=== PATIENT | female | born 1970 | race Caucasian/White ===

== ENCOUNTER 2016-05-08 21:16 | Emergency (ER) | payer OTHER ==
[2016-05-08] MEDS ORDERED: IBUPROFEN 600 MG TABLET (FP) PO ONE ×2 (21:38→21:39)
[2016-05-08 21:43] VITALS: BP 126/80; PULSE 117; TEMP 101.6; BMI 38.0
--- NOTE | 2016-05-08 22:40 | PDOC ---
[id number] No Limitations - History of Present Illness Initial Comments: 05/08/16 22:52 The patient is a 45 year old female with significant past medical history of hypertension who presents to the ED with 3 days of subjective fever, chills, and headache. Patient reports nausea, but no vomiting. She also reports 1 day of diarrhea a couple of days ago that resolved on its own. The patient denies cough, SOB, chest pain, abdominal pain and diarrhea. PCP: Dr. Georgi Rosenberg <Annie Sawyer - Last Filed: 05/08/16 22:52> - General History Source: Patient <PedroJuan mendez - Last Filed: 05/09/16 19:45> - General Chief Complaint: Cold Symptoms Stated Complaint: HEADACHE Time Seen by Provider: 05/08/16 22:31 Past History <Annie Sawyer - Last Filed: 05/08/16 22:52> - Past Medical History Anemia: No Asthma: No Cancer: No Cardiac Disorders: No CVA: No COPD: No CHF: No Dementia: No Diabetes: No GI Disorders: Yes (DIVERTICULITIS) Disorders: Yes (KIDNEY STONES) HTN: Yes (NOW CONTROLLED) Hypercholesterolemia: No Liver Disease: No Seizures: No Thyroid Disease: No - Surgical History Abdominal Surgery: No Appendectomy: No Cardiac Surgery: No Cholecystectomy: No Lung Surgery: No Neurologic Surgery: No Orthopedic Surgery: No - Immunization History Immunization Up to Date: Yes - Psycho/Social/Smoking Cessation Hx Anxiety: No Suicidal Ideation: No Smoking Status: No Smoking History: Never smoked Have you smoked in the past 12 months: No Number of Cigarettes Smoked Daily: 0 Hx Alcohol Use: No Drug/Substance Use Hx: No Substance Use Type: None Hx Substance Use Treatment: No <Juan Hart - Last Filed: 05/09/16 19:45> - Past Medical History Allergies/Adverse Reactions: Allergies Allergy/AdvReac Type Severity Reaction Status Date / Time Tetanus Vaccines and Toxoid Allergy Severe Rash Verified 05/08/16 21:35 Home Medications: Ambulatory Orders Losartan Potassium [Cozaar] 25 mg PO BID 07/20/12 Acetaminophen [Tylenol] 325 mg PO ONCE 05/08/16 Acetaminophen [Tylenol] 650 mg PO QID #60 tablet 05/09/16 Ibuprofen 800 mg PO TID #30 tablet 05/09/16 Ondansetron [Zofran Odt -] 4 mg SL TID #30 od.tablet 05/09/16 Review of Systems - Review of Systems Able to Perform ROS?: Yes Comments:: 05/08/16 22:52 CONSTITUTIONAL: +fever, chills Absent: no fatigue EYES: Absent: visual changes ENT: Absent: ear pain, no sore throat CARDIOVASCULAR: Absent: chest pain, no palpitations RESPIRATORY: Absent: cough, no SOB GI: +nausea, diarrhea Absent: abdominal pain, no vomiting, no constipation, GENITOURINARY: Absent: dysuria, no frequency, no hematuria MUSKULOSKELETAL: Absent: back pain, no arthralgia, no myalgia SKIN: Absent: rash NEURO: +headache <nAnie Sawyer - Last Filed: 05/08/16 22:52> *Physical Exam - Vital Signs Last Vital Signs Temp Pulse Resp BP Pulse Ox 101.6 F H 117 H 18 126/80 95 05/08/16 21:41 05/08/16 21:41 05/08/16 21:41 05/08/16 21:41 05/08/16 21:41 - Physical Exam Comments: 05/08/16 22:52 GENERAL: Well-appearing, well-nourished. No apparent distress. HEENT: Normocephalic, atraumatic. PERRL, EOM intact. CARDIOVASCULAR: Normal S1, S2. Regular rate and rhythm. PULMONARY: Clear to auscultation bilaterally. ABDOMEN: Soft, non-distended, non-tender. EXTREMITIES: Normal ROM in all four extremities. No gross deformities. SKIN: Warm, dry. No rash NEUROLOGICAL: No focal neurological deficits. <Annie Sawyer - Last Filed: 05/08/16 22:52> - Vital Signs Last Vital Signs Temp Pulse Resp BP Pulse Ox 101.6 F H 117 H 18 126/80 95 05/08/16 21:41 05/08/16 21:41 05/08/16 21:41 05/08/16 21:41 05/08/16 21:41 <Juan Hart - Last Filed: 05/09/16 19:45> ED Treatment Course - Medications Given in the ED: ED Medications Discontinued Medications Generic Name Dose Route Start Last Admin Trade Name Freq PRN Reason Stop Dose Admin Ibuprofen 600 mg 05/08/16 21:39 05/08/16 21:40 Motrin - PO 05/08/16 21:40 600 mg NOW ONE Administration <Annie Sawyer - Last Filed: 05/08/16 22:52> - Medications Given in the ED: ED Medications Discontinued Medications Generic Name Dose Route Start Last Admin Trade Name Magdi PRN Reason Stop Dose Admin Ibuprofen 600 mg 05/08/16 21:39 05/08/16 21:40 Motrin - PO 05/08/16 21:40 600 mg NOW ONE Administration <Juan Hart - Last Filed: 05/09/16 19:45> Medical Decision Making - Medical Decision Making 05/09/16 19:44 Dr. Hart: The scribe's documentation has been prepared under my direction and personally reviewed by me in its entirery. I confirm that the note above accurately reflects all work, treatment, procedures, and medical decision making performed by me. <Juan Hart - Last Filed: 05/09/16 19:45> *DC/Admit/Observation/Transfer - Attestations Scribe Attestion: 05/08/16 22:53 Documentation prepared by Annie Sawyer, acting as medical underwriter for Juan Hart MD <Annie Sawyer - Last Filed: 05/08/16 22:52> - Discharge Dispostion Admit: No <Juan Hart - Last Filed: 05/09/16 19:45> Diagnosis at time of Disposition: Viral illness Headache Qualifiers: Headache type: unspecified Headache chronicity pattern: unspecified pattern Intractability: not intractable Qualified Code(s): R51 - Headache Fever Qualifiers: Fever type: unspecified Qualified Code(s): R50.9 - Fever, unspecified - Discharge Dispostion Disposition: HOME Condition at time of disposition: Stable - Prescriptions Prescriptions: Ibuprofen 800 mg PO TID #30 tablet Acetaminophen [Tylenol] 650 mg PO QID #60 tablet Ondansetron [Zofran Odt -] 4 mg SL TID #30 od.tablet - Referrals Referrals: Georgi Rosenberg MD [Primary Care Provider] - - Patient Instructions Printed Discharge Instructions: DI for Fever (Symptom) -- Adult, DI for Headache
[2016-05-09] MEDS ORDERED: ONDANSETRON *ODT* 4 MG TABLET SL ONE (00:20)
[2016-05-09] MEDS ORDERED: ONDANSETRON *ODT* 4 MG TABLET ONE (00:25)
[2016-05-09] MEDS ORDERED: ONDANSETRON 8 MG TABLET (FP) PO ONE (00:26)
== END 2016-05-09 00:38 | disposition home or self-care (01) ==
LOC: JERFT 21:16 → JER 21:16
DX: B34.9 Viral infection, unspecified (principal); R50.9 Fever, unspecified; R51 Headache; I10 Essential (primary) hypertension; Z87.442 Personal history of urinary calculi
CPT/HCPCS: 70450-TC; 99281-25

== ENCOUNTER 2016-12-20 18:13 | Emergency (ER) | payer OTHER ==
[2016-12-20 18:27] VITALS: BMI 40.1
--- NOTE | 2016-12-20 19:31 | PDOC ---
History of Present Illness - General History Source: Patient, Old Records Exam Limitations: No Limitations - History of Present Illness Initial Comments: 12/20/16 19:31 CHIEF COMPLAINT: Headache HISTORY OF PRESENT ILLNESS: This is a 46 year old female with a history of vertigo and HTN who presents ambulatory to the ER complaining of sudden onset of occipital headache 3 hours prior to arrival. She does get headaches sometimes , but has never had one like this before. She reports associated nausea, neck pain, and right arm numbness/tingling. She denies visual changes, difficulty ambulating, dizziness, focal weakness, changes in speech, or any other symptoms. V/s on arrival are notable for P 102. PCP [address] Dr. Garcia No family history of CVA. Non-smoker. REVIEW OF SYSTEMS: GENERAL/CONSTITUTIONAL: No fever or chills. No weakness. No weight change. HEAD, EYES, EARS, NOSE AND THROAT: No change in vision. No ear pain or discharge. No sore throat. CARDIOVASCULAR: No chest pain or palpitations. RESPIRATORY: No cough, wheezing, or shortness of breath. GASTROINTESTINAL: Nausea. No vomiting, diarrhea or constipation. GENITOURINARY: No dysuria, frequency, or change in urination. MUSCULOSKELETAL: No joint or muscle swelling or pain. No neck or back pain. SKIN: No rash or easy bruising. NEUROLOGIC: See HPI. PSYCHIATRIC: No depression or anxiety. ENDOCRINE: No increased thirst. No abnormal weight change. HEMATOLOGIC/LYMPHATIC: No anemia, easy bleeding, or history of blood clots. ALLERGIC/IMMUNOLOGIC: No hives or skin allergy. No latex allergy. PHYSICAL EXAM: GENERAL: The patient is awake, alert, and fully oriented, in no acute distress. HEAD: Normal with no signs of trauma. ENT: Pupils equal, round and reactive to light, extraocular movements intact, sclera anicteric, conjunctiva clear. Neck stiff/unable to touch chin to chest. LUNGS: Clear to auscultation bilaterally. Normal excursion. No respiratory distress or use of accessory muscles. CV: RRR, S1/S2, no MRG. Cap refill < 2 sec. ABDOMEN: Soft, non-distended, non-tender. EXTREMITIES: Normal range of motion, no edema. NEUROLOGICAL: Normal speech, normal gait. CN II-XII grossly intact. See NIHSS. PSYCH: Normal mood, normal affect. SKIN: Warm, dry, normal turgor, no rashes or lesions noted. <Sandy Chandra - Last Filed: 12/20/16 19:55> <Lily Mtz - Last Filed: 12/20/16 21:38> - General Chief Complaint: Headache Stated Complaint: HEADACHE Time Seen by Provider: 12/20/16 19:12 NIH Stroke Scale - Last Known Well Date/Time & Onset Date Last Known Well: 12/20/16 Time Last Known Well: 16:45 - Initial Evaluation Level of consciousness: Alert Ask patient the month and their age: Answers both correctly Ask patient to open & close eyes; make fist and let go: Obeys both correctly Best gaze (horizontal eye movement): Normal Visual field testing: No visual field loss Facial paresis (Show teeth/raise eyebrows/close eyes tight): Normal symmetrical movement Motor Function: Left Arm: Normal Motor Function: Right Arm: Normal (extends arm 90 (or 45) degrees for 10 seconds without drift Motor Function: Left Leg: Normal (extends leg 30 degrees for 5 seconds without drift) Motor Function: Right Leg: Normal (extends leg 30 degrees for 5 seconds without drift) Limb Ataxia: No ataxia Sensory(Use pinprick test arms,legs,trunk,face/side to side): Mild to moderate decrease in sensation (Right arm) Best language (Describe picture, name items, read sentences): No Aphasia Dysarthria (read several words): Normal articulation Extinction and Inattention: No abnormality - Total Score NIH Stroke Scale Score: 1 <Sandy Chandra - Last Filed: 12/20/16 19:55> Past History - Past Medical History Anemia: No Asthma: No Cancer: No Cardiac Disorders: No CVA: No COPD: No CHF: No Dementia: No Diabetes: No GI Disorders: Yes (DIVERTICULITIS) Disorders: Yes (KIDNEY STONES) HTN: Yes (NOW CONTROLLED) Hypercholesterolemia: No Liver Disease: No Seizures: No Thyroid Disease: No - Surgical History Abdominal Surgery: No Appendectomy: No Cardiac Surgery: No Cholecystectomy: No Lung Surgery: No Neurologic Surgery: No Orthopedic Surgery: No - Immunization History Immunization Up to Date: Yes - Psycho/Social/Smoking Cessation Hx Anxiety: No Suicidal Ideation: No Smoking Status: No Smoking History: Never smoked Have you smoked in the past 12 months: No Number of Cigarettes Smoked Daily: 0 Hx Alcohol Use: No Drug/Substance Use Hx: No Substance Use Type: None Hx Substance Use Treatment: No <Sandy Chandra - Last Filed: 12/20/16 19:55> <Lily Mtz - Last Filed: 12/20/16 21:38> - Past Medical History Allergies/Adverse Reactions: Allergies Allergy/AdvReac Type Severity Reaction Status Date / Time Tetanus Vaccines and Toxoid Allergy Severe Rash Verified 12/20/16 18:24 Home Medications: Ambulatory Orders Losartan Potassium [Cozaar] 25 mg PO BID 07/20/12 *Physical Exam - Vital Signs Last Vital Signs Temp Pulse Resp BP Pulse Ox 99.4 F 102 H 19 130/58 96 12/20/16 18:24 12/20/16 18:24 12/20/16 18:24 12/20/16 18:24 12/20/16 18:24 <Sandy Chandra - Last Filed: 12/20/16 19:55> - Vital Signs Last Vital Signs Temp Pulse Resp BP Pulse Ox 99.4 F 102 H 19 130/58 96 12/20/16 18:24 12/20/16 18:24 12/20/16 18:24 12/20/16 18:24 12/20/16 18:24 <Lily Mtz - Last Filed: 12/20/16 21:38> ED Treatment Course - LABORATORY CBC & Chemistry Diagram: 12/20/16 19:50 12/20/16 19:50 - ADDITIONAL ORDERS Additional order review: Laboratory Results 12/20/16 12/20/16 12/20/16 19:50 19:50 19:50 PT with INR Cancelled INR Cancelled Sodium Cancelled Potassium Cancelled Chloride Cancelled Carbon Dioxide Cancelled Anion Gap Cancelled BUN Cancelled Creatinine Cancelled Creat Clearance w eGFR Cancelled Random Glucose Cancelled Calcium Cancelled Total Bilirubin Cancelled AST Cancelled ALT Cancelled Alkaline Phosphatase Cancelled Creatine Kinase Cancelled Troponin I Cancelled Total Protein Cancelled Albumin Cancelled Triglycerides Cancelled Cholesterol Cancelled Total LDL Cholesterol Cancelled HDL Cholesterol Cancelled Anti-A Titer Cancelled Blood Type Cancelled Antibody Screen Cancelled Spec Expiration Date Cancelled 12/20/16 19:50 RBC 4.27 MCV 86.5 MCHC 32.6 RDW 15.9 H MPV 8.3 Neutrophils % 67.8 Lymphocytes % 23.2 Monocytes % 6.9 Eosinophils % 1.2 Basophils % 0.9 - Medications Given in the ED: ED Medications Discontinued Medications Generic Name Dose Route Start Last Admin Trade Name Magdi PRN Reason Stop Dose Admin Metoclopramide HCl 10 mg 12/20/16 19:38 12/20/16 20:30 Reglan Injection - IVPB 12/20/16 19:39 10 mg ONCE ONE Administration <Lily Mtz - Last Filed: 12/20/16 21:38> Medical Decision Making - Medical Decision Making 12/20/16 19:43 A/P: 46 year old female with sudden onset, atypical headache accompanied by right arm numbness. -CVA/TIA order set initiated, patient transported directly to [facility] from [facility] -Will transfer to Main ED for further evaluation and treatment; endorsed to Dr. Mtz and nurse fiscal manager <Sandy Chandra - Last Filed: 12/20/16 19:55> *DC/Admit/Observation/Transfer <Sandy Chandra - Last Filed: 12/20/16 19:55> - Discharge Dispostion Admit: No - Attestations Physician Attestion: 12/20/16 21:35 Discussion with patient in Jamaican at bedside in main ED. She has had similar headaches in the past, she has noticed she has been having them since the onset of menopause with her hysterectomy. She has been following up with her device engineer about the menopausal symptoms, but she states at times she has hot/cold flashes. She says that her headaches begin with pain to the right side of her neck, which then spreads up the R side of her head up to the frontal area. They are associated with changes in sensation to the right side of her face. No weakness or numbness to the limbs. She has had 3 of these headaches, they are episodic. The pain can be severe. She does not take anything for them. On exam, she has normal neuro exam. I suspect these symptoms are due to complex migraine. Recommended outpatient neuro f/u. <Lily Mtz - Last Filed: 12/20/16 21:38> Diagnosis at time of Disposition: Headache Qualifiers: Headache type: unspecified Headache chronicity pattern: episodic headache Intractability: not intractable Qualified Code(s): R51 - Headache - Discharge Dispostion Disposition: HOME Condition at time of disposition: Stable - Patient Instructions Printed Discharge Instructions: DI for Migraine, DI for Hormonal and Tension Headaches Additional Instructions: Siga con un neurlogo para los tawanda de marcos. si tiene dolor de marcos, tome ibuprofeno para el dolor. Si tiene dolor de marcos melody, rigidez en el kyra, vmitos, prdida de sensacin o movimiento, regrese inmediatamente a la balta de emergencia. Print Language: JORDANIAN
[2016-12-20] MEDS ORDERED: METOCLOPRAMIDE HCL INJECTION 10 MG/2 ML VIAL IVPB ONE (19:38)
[2016-12-20] MEDS ORDERED: SODIUM CHLORIDE 1,000 ML IV SCH (19:45)
[2016-12-20 20:01] LABS: BASOPHIL 0.9 % (0-2.0); EOSINOPHIL 1.2 % (0-4.5); MCH 28.2 pg (25.7-33.7); MCHC 32.6 g/dl (32.0-36.0); MEAN CELL VOLUME 86.5 fl (80-96); MEAN PLT VOLUME 8.3 fl (7.5-11.1); NEUTROPHILS 67.8 % (42.8-82.8); PLATELET COUNT 428 K/MM3 (134-434); RDW 15.9 % (11.6-15.6)
[2016-12-20] MEDS ORDERED: METOCLOPRAMIDE HCL INJECTION 10 MG/2 ML VIAL ONE (20:31)
[2016-12-20 21:55] LABS: URINE APPEARANCE CLOUDY; URINE BILIRUBIN NEGATIVE (NEGATIVE); URINE BLOOD 3+ (NEGATIVE); URINE COLOR YELLOW; URINE GLUCOSE (UA) NEGATIVE (NEGATIVE); URINE KETONE NEGATIVE (NEGATIVE); URINE NITRITE POSITIVE (NEGATIVE); URINE PROTEIN NEGATIVE (NEGATIVE); URINE UROBILINOGEN NEGATIVE mg/dL (0.2-1.0)
[2016-12-20 21:56] LABS: URINE LEUK ESTERASE 3+ (NEGATIVE)
[2016-12-20 22:10] VITALS: BP 128/60; PULSE 90; TEMP 98.2
[2016-12-20 22:49] LABS: URINE MUCUS RARE; URINE RBC 89 /hpf (0-3); URINE WBC 384 /hpf (3-5)
== END 2016-12-20 22:13 | disposition home or self-care (01) ==
LOC: JER 18:13 → JERFT 18:13 → JER 22:13
PROC: 3E033GC Introduction of Other Therapeutic Substance into Peripheral Vein, Percutaneous Approach (ICD-10-PCS; principal; 2016-12-20)
DX: R51 Headache (principal); I10 Essential (primary) hypertension
CPT/HCPCS: 36415; 70450-TC; 81003; 81015; 85025; 96374; 99283-25

== ENCOUNTER 2017-11-10 09:10 | Day surgery (SDC) | payer OTHER ==
[2017-11-05 14:57] VITALS: BMI 31.7
[2017-11-10] MEDS ORDERED: LACTATED RINGERS SOLUTION 1,000 ML IV SCH (09:45)
[2017-11-10] MEDS ORDERED: PROPOFOL 20 ML ONE (10:55)
[2017-11-10] MEDS ORDERED: MIDAZOLAM HCL 2 MG/2 ML SINGLE DOSE VIAL ONE (10:55)
[2017-11-10] MEDS ORDERED: LIDOCAINE HCL/PF 2% SDV 5ML VIAL ONE (10:57)
[2017-11-10] MEDS ORDERED: DEXAMETHASONE SOD PHOSPHATE 4 MG/1 ML VIAL ONE ×2 (10:57→12:13)
[2017-11-10] MEDS ORDERED: GENTAMICIN SO4 80 MG/2 ML VIAL ONE (11:51)
[2017-11-10] MEDS ORDERED: KETOROLAC TROMETHAMINE 30 MG/1 ML VIAL ONE (12:13)
--- NOTE | 2017-11-10 12:22 | OP ---
Operative Note - Note: Operative Date: 11/10/17 Pre-Operative Diagnosis: right renal stone Operation: cystoscopy/right retrograde pyelogram/right ureteroscopic laser lithotripsy/right ureteral stent placement Findings: multiple 1-3 cm right renal stones with upj obstruction Post-Operative Diagnosis: Same as Pre-op (right upj obstruction with multiple large renal stones) Surgeon: Easton Russell Anesthesia: General Drains & Tubes with Location: right 09/26 ureteral stent
[2017-11-10 13:36] VITALS: TEMP 97.6
[2017-11-10 15:00] VITALS: BP 114/67; PULSE 77
--- NOTE | 2017-11-10 23:05 | OP ---
DATE OF OPERATION: 11/10/2017 PREOPERATIVE DIAGNOSIS: Right renal stone. POSTOPERATIVE DIAGNOSIS: Multiple large, 1-3 cm, renal stones with right ureteropelvic junction obstruction with mild to moderate hydronephrosis. PROCEDURE: Cystoscopy, right retrograde pyelogram, right ureteroscopic laser lithotripsy, right ureteral dilation, and right ureteral stent placement. ATTENDING SURGEON: Ronald Hanson MD ANESTHESIA: General. OPERATION: The patient was brought to the operating room and placed in the supine position on the operating room table. Preoperative antibiotics as well as anesthesia were instituted. The patient received 500 mg of Levaquin with a dose of gentamicin as well. The dose of gentamicin was given after the stone burden was appreciated on retrograde pyelogram. The patient was placed in the dorsal lithotomy position, prepped and draped in the usual sterile manner. Cystoscopy was performed with no evidence of neoplasm or stones within the bladder were noted. One to 2+ bladder spatulation was noted. At this point, a retrograde pyelogram was performed. Prior to the retrograde pyelogram, fluoroscopy was performed and multiple large calcific densities were noted over the renal fossa. Retrograde pyelogram showed that these were indeed within the collecting system of the kidney. Multiple stones measuring 1-3 cm were noted in the lower pole and renal pelvis as well as upper pole. At this point, the wire was passed proximally and a flexible ureteroscope was placed. It must be noted that the right UPJ obstruction measuring 2 cm was noted. A ureteral navigator was utilized for dilation of the proximal as well as distal ureters. A flexible ureteroscopy was then performed over a wire utilizing the Seldinger technique. A second wire had been left in place in order to have a safety wire present. With the flexible ureteroscope in position in the kidney, a Holmium laser fiber was passed. Under direct visualization lithotripsy utilizing the Holmium laser was performed. Debulking of one of the large stones was performed. There was no evidence of extravasation of contrast. The patient's vital signs stayed stable throughout the procedure. Because of the number of stones, it was decided that lithotripsy utilizing extracorporeal shock wave lithotripsy would be employed at the next setting. The patient has been given the option of a percutaneous nephrostomy tube with an approach to the stones by that method; however, the patient has declined that approach. At this point, a 6-Arabic 22-cm stent was placed over the wire utilizing the Seldinger technique. No complications were noted. The patient tolerated the procedure very well. The disposition of the patient is to the recovery room. KARIS HANSON M.D. /[id number]
== END 2017-11-10 15:00 | disposition home or self-care (01) ==
LOC: JASU-SURG 09:10
PROVIDERS: ATTEND Urology
PROC: 0TF68ZZ Fragmentation in Right Ureter, Via Natural or Artificial Opening Endoscopic (ICD-10-PCS; principal; 2017-11-10 11:00)
PROC: 0T768DZ Dilation of Right Ureter with Intraluminal Device, Via Natural or Artificial Opening Endoscopic (ICD-10-PCS; 2017-11-10 11:00)
DX: N20.0 Calculus of kidney (principal); N13.39 Other hydronephrosis
CPT/HCPCS: 76000-TC-FY

== ENCOUNTER 2017-12-01 09:43 | Inpatient (IN) | payer OTHER ==
[2017-12-01] MEDS ORDERED: SODIUM CHLORIDE 1,000 ML IV STA (09:58)
--- NOTE | 2017-12-01 10:05 | PDOC ---
History of Present Illness - General History Source: Patient Exam Limitations: No Limitations - History of Present Illness Initial Comments: 12/01/17 12:15 Ms. Jerome Cao is a 47 yo F with a hx of nephrolithiasis s/p right ureteral stent placement 2 weeks ago and HTN who presents to the emergency department with rectal bleeding. She states the episode occurred at 9am today. She had an involuntary bowel movement with stool and blood mixed. She denies bright red blood and a hx of hemorrhoids. In addition, she states she had no pain during this episode. Per the patient, she had tarry stools last Friday 1x episode, but had normal movements Friday and Friday. Denies the following: hx of familial colon cancer, NSAID use, hx of gastritis/PUD, use of anticoagulants, and never had a colonoscopy. She was scheduled for a lithotripsy today with Dr. Manuel Rogers at 12:30 pm. Denies the following: fever, headaches, recent visual changes, weakness, chest pain, SOB, abdominal pain, hematuria, vaginal bleeding/discharge , dysuria, and leg pain/swelling. Pmhx: HTN, nephrolithiasis Shx: Ureteral stent right side 2 weeks ago. Meds: losartan and potassium Allergies: tetanus vaccine Social: Denies smoking, alcohol, and drug use. 12/01/17 13:33 12/01/17 13:41 <Dell Rodriguez - Last Filed: 12/02/17 07:37> <Pallavi Nava - Last Filed: 12/02/17 16:27> - General Chief Complaint: Rectal Bleed Stated Complaint: BLOOD IN THE STOOL Time Seen by Provider: 12/01/17 10:02 Past History - Past Medical History Anemia: No Asthma: No Cancer: No Cardiac Disorders: No CVA: No COPD: No CHF: No DVT: No Dementia: No Diabetes: No GI Disorders: Yes (DIVERTICULITIS) Disorders: Yes (KIDNEY STONES) HTN: Yes (NOW CONTROLLED) Hypercholesterolemia: No Kidney Stones: Yes Liver Disease: No Seizures: No Thyroid Disease: No - Surgical History Abdominal Surgery: No Appendectomy: No Cardiac Surgery: No Cholecystectomy: No Lung Surgery: No Neurologic Surgery: No Orthopedic Surgery: No - Immunization History Immunization Up to Date: Yes - Suicide/Smoking/Psychosocial Hx Smoking Status: No Smoking History: Never smoked Have you smoked in the past 12 months: No Number of Cigarettes Smoked Daily: 0 Information on smoking cessation initiated: No Hx Alcohol Use: Yes (occas) Drug/Substance Use Hx: No Substance Use Type: Alcohol Hx Substance Use Treatment: No <Dell Rodriguez - Last Filed: 12/02/17 07:37> <Pallavi Nava - Last Filed: 12/02/17 16:27> - Past Medical History Allergies/Adverse Reactions: Allergies Allergy/AdvReac Type Severity Reaction Status Date / Time Tetanus Vaccines and Toxoid Allergy Severe Rash Verified 12/01/17 09:45 Home Medications: Ambulatory Orders Losartan Potassium [Cozaar] 25 mg PO BID 07/20/12 Potassium Citrate [Potassium Citrate ER] 10 meq PO BID 12/02/17 Review of Systems - Review of Systems Able to Perform ROS?: Yes Constitutional: No: Diaphoresis, Fever HEENTM: No: Recent change in vision, Ear Pain, Nose Pain, Throat Pain, Mouth Pain Respiratory: No: Cough, Shortness of Breath, Hemoptysis Cardiac (ROS): No: Chest Pain, Lightheadedness, Palpitations, Syncope ABD/GI: Yes: Rectal Bleeding. No: Constipated, Diarrhea, Nausea, Poor Fluid Intake, Vomiting, Tarry Stools : No: Dysuria, Hematuria Musculoskeletal: No: Back Pain Integumentary: No: Rash Neurological: No: Headache, Numbness, Weakness Psychiatric: No: Stressors Endocrine: No: Unexplained Weight Loss Hematologic/Lymphatic: No: Anemia <Dell Rodriguez - Last Filed: 12/02/17 07:37> *Physical Exam - Vital Signs Last Vital Signs Temp Pulse Resp BP Pulse Ox 98.8 F 111 H 18 143/88 100 12/01/17 09:47 12/01/17 09:47 12/01/17 09:47 12/01/17 09:47 12/01/17 09:47 - Physical Exam General Appearance: Yes: Nourished, Appropriately Dressed HEENT: positive: EOMI, LYNN, Normal ENT Inspection Neck: negative: Lymphadenopathy (R), Lymphadenopathy (L) Respiratory/Chest: positive: Lungs Clear, Normal Breath Sounds Cardiovascular: positive: Regular Rhythm, S1, S2, Tachycardia. negative: Systolic Murmur Vascular Pulses: Dorsalis-Pedis (R): 3+, Doralis-Pedis (L): 3+ Gastrointestinal/Abdominal: positive: Normal Bowel Sounds, Tender (LLQ tenderness to palpation), Soft Rectal Exam: positive: heme positive stool. negative: decreased tone, hemorrhoids Lymphatic: negative: Adenopathy Musculoskeletal: positive: Normal Inspection, CVA Tenderness Extremity: positive: Normal Capillary Refill, Normal Inspection, Normal Range of Motion Integumentary: positive: Dry, Warm, Pale Neurologic: positive: clinical admissions manager II-XII NML intact, Fully Oriented, Alert, Motor Strength 5/5 <Dell Rodriguez - Last Filed: 12/02/17 07:37> - Vital Signs Last Vital Signs Temp Pulse Resp BP Pulse Ox 98.1 F 90 13 128/80 100 12/02/17 10:30 12/02/17 11:30 12/02/17 11:30 12/02/17 11:30 12/02/17 09:00 <Pallavi Nava - Last Filed: 12/02/17 16:27> ED Treatment Course - LABORATORY CBC & Chemistry Diagram: 12/01/17 16:34 12/02/17 05:30 <Dell Rodriguez - Last Filed: 12/02/17 07:37> - LABORATORY CBC & Chemistry Diagram: 12/02/17 05:30 12/02/17 05:30 - ADDITIONAL ORDERS Additional order review: 12/01/17 10:35 RBC 4.26 MCV 88.7 MCHC 33.1 RDW 13.6 D MPV 7.8 Neutrophils % 60.5 Lymphocytes % 27.5 Monocytes % 8.6 Eosinophils % 3.0 D Basophils % 0.4 - Medications Given in the ED: ED Medications Discontinued Medications Generic Name Dose Route Start Last Admin Trade Name Alfrdeoq PRN Reason Stop Dose Admin Sodium Chloride 1,000 mls @ 1,000 mls/hr 12/01/17 09:58 12/01/17 11:45 Normal Saline - IV 12/01/17 10:57 1,000 mls/hr ASDIR STA Administration Sodium Chloride 1,000 mls @ 100 mls/hr 12/01/17 14:15 12/01/17 14:43 Normal Saline - IV 100 mls/hr ASDIR GINA Administration Pantoprazole Sodium 40 mg 12/01/17 14:05 12/01/17 21:59 Protonix Iv IVPUSH 40 mg BID GINA Administration <Pallavi Nava - Last Filed: 12/02/17 16:27> Medical Decision Making - Medical Decision Making 12/01/17 13:49 Ms. Cano is a 47 yo F with hx of nephrolithiasis and HTN who presents with rectal bleeding with passing of blood clots in ED with positive fecal occult test. ddx: diverticulosis, diverticulitis, colonic cancer, fissure, fistula, hemorrhoids Initial vitals": Initial Vital Signs Temp Pulse Resp BP Pulse Ox 98.8 F 111 H 18 143/88 100 12/01/17 09:47 12/01/17 09:47 12/01/17 09:47 12/01/17 09:47 12/01/17 09:47 Work up: Laboratory Tests 12/01/17 12/01/17 12/01/17 10:35 10:35 10:35 WBC 6.4 RBC 4.26 Hgb 12.5 Hct 37.8 MCV 88.7 MCH 29.4 MCHC 33.1 RDW 13.6 D Plt Count 311 D MPV 7.8 Absolute Neuts (auto) 3.8 Neutrophils % 60.5 Lymphocytes % 27.5 Monocytes % 8.6 Eosinophils % 3.0 D Basophils % 0.4 Nucleated RBC % 0 Retic Count 0.97 PT with INR 11.80 INR 1.04 Sodium 143 Potassium 4.1 Chloride 108 H Carbon Dioxide 25 Anion Gap 10 BUN 12 Creatinine 0.5 L Creat Clearance w eGFR > 60 Random Glucose 107 H Calcium 9.0 Total Bilirubin 0.4 AST 14 L ALT 24 Alkaline Phosphatase 106 Total Protein 7.0 Albumin 3.6 Stool Occult Blood Blood Type Antibody Screen 12/01/17 12/01/17 12/01/17 10:44 10:44 11:37 WBC RBC Hgb Hct MCV MCH MCHC RDW Plt Count MPV Absolute Neuts (auto) Neutrophils % Lymphocytes % Monocytes % Eosinophils % Basophils % Nucleated RBC % Retic Count PT with INR INR Sodium Potassium Chloride Carbon Dioxide Anion Gap BUN Creatinine Creat Clearance w eGFR Random Glucose Calcium Total Bilirubin AST ALT Alkaline Phosphatase Total Protein Albumin Stool Occult Blood Negative Positive Blood Type O POSITIVE Antibody Screen Negative 12/01/17 13:12 WBC 10.5 H RBC 3.54 L Hgb 10.6 L Hct 31.7 L D MCV 89.6 MCH 29.9 MCHC 33.3 RDW 13.5 Plt Count 330 MPV 8.0 Absolute Neuts (auto) 7.8 Neutrophils % 75.1 D Lymphocytes % 17.7 D Monocytes % 6.2 Eosinophils % 0.8 Basophils % 0.2 Nucleated RBC % 0 Retic Count PT with INR INR Sodium Potassium Chloride Carbon Dioxide Anion Gap BUN Creatinine Creat Clearance w eGFR Random Glucose Calcium Total Bilirubin AST ALT Alkaline Phosphatase Total Protein Albumin Stool Occult Blood Blood Type Antibody Screen CBC was initially within normal limits in the department with tachycardia. Given 1 L of NS with improvement of tachycardia to 97. She passed dark blood multiple times with initial presenting as 10 cc. a repeat CBC was ordered and showed a 1.[address] Burger was consulted who recommended ICU admission. ICU was contacted and accepted admission for rectal bleeding. Disposition: Admit to ICU. <Dell Rodriguez - Last Filed: 12/02/17 07:37> *DC/Admit/Observation/Transfer - Discharge Dispostion Decision to Admit order: Yes <Dell Rodriguez - Last Filed: 12/02/17 07:37> - Discharge Dispostion Decision to Admit order: Yes <Pallavi Nava - Last Filed: 12/02/17 16:27> Diagnosis at time of Disposition: Rectal bleeding - Discharge Dispostion Condition at time of disposition: Fair
--- NOTE | 2017-12-01 10:26 | PDOC ---
Attending Attestation - HPI HPI: 12/01/17 11:59 The patient is a 47 year old male, with a significant past medical history of vertigo and HTN, kidney stones s/p lithotripsy/ureteral stent for right UPJ stone, who presents to the emergency department with, rectal bleeding with associated LLQ tenderness and dizziness yesterday. As per patient, she had two episodes of rectal bleeding, one being involuntary. She reports one episode of tar-like stool 4 days ago. The patient has a 12:30pm with Dr. Russell for a lithotripsy. He denies any recent fevers, chills, headache. He denies any recent nausea, vomit, diarrhea or constipation. He denies any recent chest pain or shortness of breath. He denies any recent dysuria, frequency, urgency or hematuria. Allergies: NKA Past surgical history:Tetanus vaccine and toxoid. - Physicial Exam PE: 12/01/17 11:59 NAD, well appearing, MMM, nl conjunctiva, anicteric; neck supple. lungs clear, RRR, abdomen soft nontender, obese. +gross blood per rectum, nontender. BLACK x4, no focal neuro deficits. No peripheral edema. normal color for ethnicity, WWP. <Elizabeth Leija - Last Filed: 12/01/17 11:59> - Resident Resident Name: Dell Rodriguez - ED Attending Attestation I have performed the following: I have examined & evaluated the patient, The case was reviewed & discussed with the resident, I agree w/resident's findings & plan - Medical Decision Making 12/01/17 11:35 Cano Cao 47 YOF history of vertigo and HTN, kidney stones s/p lithotripsy/ ureteral stent for right UPJ stone presenting with painless rectal bleeding; this past Friday with tarry dark stools. No prior similar episodes. DDx. Diverticular bleed, colitis, hemorrhoid, PUD, anemia, electrolyte/ metabolic derangements. considered but unlikely renal colic or hematuria and no flank tenderness or CVAT. Vital signs reviewed, notable for mild tachycardia, mild hypertension. Medical Plan: TxS, CBC, CMP, ECG, trops/card panel, stool occult test Prior notes reviewed, including admissions, discharges and consultations. laboratory results and imaging reviewed, basic labs and lytes wnl, coags/H/H normal. +grossly positive stools and clot passage, dark red bloody appearance, benign abdominal exam but did elicit LLQ tenderness on resident exam. CT imaging a/p to eval for source of pain. No pain otherwise. VS remain stable, given fluids and TxS already. Called out to Dr. Burger for GI eval and scope, admit for GIB. - while in the ED she had another several episodes of blood per rectum, symptomatic with dizziness and pallor. repeat VS normal, HR in 90s, brought back from CT a/p which was not completed. repeat CBC check indicated. will call for ICU bed for closer monitoring, hemodynamics, serial H/H and abdominal exams and at risk for decompensation and further bleeding. Dr. Palmer consulted and admitting physician. Dispo: Admitting to ICU for acute GIB, suspecting lower GIB, GI consultation for more urgent scope called in the ED given active bleeding.. Discussed results and management plan with pt and family member at bedside, agree with impression and plan 12/01/17 14:40 <Pallavi Nava - Last Filed: 12/01/17 14:40> Heart Score/ECG Review - ECG Impressions Comment:: 12/01/17 14:39 EKG normal sinus rhythm, no interval abnormalities, narrow QRS, ST and T wave segments and morphology normal. Nonspecific T wave abnormalities flattening in III, AVF <Pallavi Nava - Last Filed: 12/01/17 14:40> Attestations - Attestations 12/01/17 12:00 Documentation prepared by Elizabeth Leija, acting as medical record consultant for Pallavi Nava MD. <Elizabeth Leija - Last Filed: 12/01/17 11:59> - Attestations Physician Attestation: 12/01/17 14:39 I, Pallavi Nava MD, attest that this document has been prepared under my direction and personally reviewed by me in its entirety. I further attest, that it accurately reflects all work, treatment, procedures and medical decision -making performed by me. <Pallavi Nava - Last Filed: 12/01/17 14:40>
[2017-12-01 10:43] LABS: BASO % 0.4 % (0-2.0); HEMATOCRIT 37.8 % (32.4-45.2); HEMOGLOBIN 12.5 GM/dL (10.7-15.3); LYMPH % 27.5 % (8-40); MCH 29.4 pg (25.7-33.7); MCHC 33.1 g/dl (32.0-36.0); MEAN CELL VOLUME 88.7 fl (80-96); MEAN PLT VOLUME 7.8 fl (7.5-11.1); MONO % 8.6 % (3.8-10.2); NEUT % 60.5 % (42.8-82.8); PLATELET COUNT 311 K/MM3 (134-434); RBC 4.26 M/mm3 (3.60-5.2); RDW 13.6 % (11.6-15.6); RETICULOCYTES 0.97 % (0.5-1.5); WHITE BLOOD COUNT 6.4 K/mm3 (4.0-10.0)
[2017-12-01 11:04] LABS: INR 1.04 (0.83-1.09); PROTHROMBIN TIME (PATIENT) 11.8 SEC (9.7-13.0)
[2017-12-01 11:10] LABS: ALBUMIN 3.6 g/dl (3.4-5.0); ANION GAP 10 MMOL/L (8-16); BLOOD UREA NITROGEN 12 mg/dL (7-18); CHLORIDE 108 mmol/L (98-107); CO2 25 mmol/L (21-32); CREATININE 0.5 mg/dL (0.55-1.02); GLUCOSE,RANDOM 107 mg/dL (74-106); POTASSIUM 4.1 mmol/L (3.5-5.1); SGOT/AST 14 U/L (15-37); SGPT/ALT 24 U/L (12-78); SODIUM 143 mmol/L (136-145)
[2017-12-01 11:12] LABS: ALK PHOS 106 U/L (45-117); BILIRUBIN,TOTAL 0.4 mg/dL (0.2-1.0)
[2017-12-01 13:23] LABS: BASO % 0.2 % (0-2.0); EOS % 0.8 % (0-4.5); HEMATOCRIT 31.7 % (32.4-45.2); HEMOGLOBIN 10.6 GM/dL (10.7-15.3); LYMPH % 17.7 % (8-40); MCH 29.9 pg (25.7-33.7); MCHC 33.3 g/dl (32.0-36.0); MEAN CELL VOLUME 89.6 fl (80-96); MONO % 6.2 % (3.8-10.2); NEUT % 75.1 % (42.8-82.8); PLATELET COUNT 330 K/MM3 (134-434); RBC 3.54 M/mm3 (3.60-5.2); RDW 13.5 % (11.6-15.6); WHITE BLOOD COUNT 10.5 K/mm3 (4.0-10.0)
[2017-12-01] MEDS ORDERED: SODIUM CHLORIDE 1,000 ML IV SCH (14:15)
[2017-12-01] MEDS ORDERED: PANTOPRAZOLE SODIUM 40 MG VIAL ONE (14:40)
--- NOTE | 2017-12-01 14:41 | CONSULT ---
Consultation: REQUESTING PROVIDER: Dr. Henao (admitting), [facility] [place] ([place]) CONSULT REQUEST: We have been asked to medically evaluate this patient for GI/ rectal bleed. HISTORY OF PRESENT ILLNESS: Pt, with PMH of endometrial CA s/p hysterectomy, HTN (controlled with 25 mg Losartan BID), and nephrolithiasis s/p R ureteral stent placement, presents with rectal bleeding since Friday (11/28/2017). Starting Friday, the pt noticed dark red/brown spotting after passing a BM, which was associated with diffuse abdominal crampy pain. Her BMs were normal on Friday and Friday. This AM, the pt states the crampy abdominal pain returned, and she had bowel incontinence with a bloody loose stool. She also had multiple episodes of bloody loose stool in the ER, with passage of a dark red clot and tachycardia to 3. She began to feel light-headed after this event. She denies any fevers/chills, nausea/ vomiting, chest pain, SOB, dysuria, hematuria, or leg swelling. She denies any new/raw foods or any sick contacts. She has not had a colonoscopy. Hemoccult stool test in ER was positive for blood. The pt had a R ureteral stent placed 11/10/2017. Last week Friday and Friday, she took 2 aleve BID for pain after the stent. She also used an antibiotic ( unknown type) x7 days after the stent was placed. LMP was before the hysterectomy was completed. Allergies: Tetanus vaccine Social: denies alcohol, cigarettes, or drug use. Family history: no cancer or GI bleeding REVIEW OF SYSTEMS: CONSTITUTIONAL: Absent: fever, chills, diaphoresis, generalized weakness, malaise, loss of appetite, weight change. Light headed after loose BMs today. HEENT: Absent: rhinorrhea, nasal congestion, throat pain, throat swelling, difficulty swallowing, mouth swelling, ear pain, eye pain, visual changes CARDIOVASCULAR: Absent: chest pain, syncope, palpitations, irregular heart rate, peripheral edema. Endorses lightheadedness RESPIRATORY: Absent: cough, shortness of breath, dyspnea with exertion, orthopnea, wheezing, stridor, hemoptysis GASTROINTESTINAL: Absent: abdominal distension, nausea, vomiting, constipation. Generalized, crampy abdominal pain associated with loose bloody stools. Tarry stool on Friday. GENITOURINARY: Absent: dysuria, frequency, urgency, hesitancy, hematuria, flank pain, genital pain MUSCULOSKELETAL: Absent: myalgia, arthralgia, joint swelling, back pain, neck pain SKIN: Absent: rash, itching, pallor HEMATOLOGIC/IMMUNOLOGIC: Absent: easy bleeding, easy bruising, lymphadenopathy, frequent infections. Current bleeding from rectum with BMs. No history of bleeds. Endometrial cancer s/p complete hysterectomy. ENDOCRINE: Absent: unexplained weight gain, unexplained weight loss, heat intolerance, cold intolerance NEUROLOGIC: Absent: headache, focal weakness or paresthesias, dizziness, unsteady gait, seizure, mental status changes, bladder incontinence. Bowel incontinence. PSYCHIATRIC: Absent: anxiety, depression, suicidal or homicidal ideation, hallucinations. PHYSICAL EXAMINATION Vital Signs - 24 hr 12/01/17 12/01/17 12/01/17 09:47 10:05 12:20 Temperature 98.8 F 98.0 F Pulse Rate 111 H Pulse Rate [ 120 H Apical] Respiratory 18 20 Rate Blood Pressure 143/88 Blood Pressure 137/110 [Right Arm] O2 Sat by Pulse 100 100 100 Oximetry (%) 12/01/17 12/01/17 13:16 13:36 Temperature 98.0 F 98.0 F Pulse Rate Pulse Rate [ 100 H 98 H Apical] Respiratory 18 18 Rate Blood Pressure Blood Pressure 110/70 124/90 [Right Arm] O2 Sat by Pulse 100 98 Oximetry (%) GENERAL: Awake, alert, and fully oriented. BP 124/90, tachycardic 98-104, 98% on RA. Pt able to lie comfortably. HEAD: Normal with no signs of trauma. EYES: Pupils equal, round and reactive to light, extraocular movements intact, sclera anicteric, conjunctiva clear. No lid lag. EARS, NOSE, THROAT: Nares patent, oropharynx clear without exudates. Moist mucous membranes. NECK: Normal range of motion, supple without lymphadenopathy, JVD, or masses. LUNGS: Breath sounds equal, clear to auscultation bilaterally. No wheezes, and no crackles. No accessory muscle use. HEART: Regular rhythm, tachycardic 98-104. normal S1 and S2 without murmur, rub or gallop. ABDOMEN: Soft, nontender, not distended, hypoactive bowel sounds. no guarding, no rebound, no masses. No hepatomegaly or splenomegaly. RECTAL: Bright red blood present around the rectum. Deferred rectal as already performed by ED physician with gross blood on glove. MUSCULOSKELETAL: Normal range of motion at all joints. No bony deformities or tenderness. No CVA tenderness. UPPER EXTREMITIES: 2+ pulses, warm, well-perfused. No cyanosis. No clubbing. Cap refill <2 seconds. No peripheral edema. LOWER EXTREMITIES: 2+ pulses, warm, well-perfused. No calf tenderness. No peripheral/pitting edema. NEUROLOGICAL: Cranial nerves II-XII intact. Normal speech. PSYCHIATRIC: Cooperative. Good eye contact. Appropriate mood and affect. SKIN: Warm, dry, normal turgor/no skin tenting, no rashes or lesions noted. Laboratory Results - last 24 hr 12/01/17 12/01/17 12/01/17 10:35 10:35 10:35 WBC 6.4 RBC 4.26 Hgb 12.5 Hct 37.8 MCV 88.7 MCH 29.4 MCHC 33.1 RDW 13.6 D Plt Count 311 D MPV 7.8 Absolute Neuts (auto) 3.8 Neutrophils % 60.5 Lymphocytes % 27.5 Monocytes % 8.6 Eosinophils % 3.0 D Basophils % 0.4 Nucleated RBC % 0 Retic Count 0.97 PT with INR 11.80 INR 1.04 Sodium 143 Potassium 4.1 Chloride 108 H Carbon Dioxide 25 Anion Gap 10 BUN 12 Creatinine 0.5 L Creat Clearance w eGFR > 60 Random Glucose 107 H Calcium 9.0 Total Bilirubin 0.4 AST 14 L ALT 24 Alkaline Phosphatase 106 Total Protein 7.0 Albumin 3.6 Stool Occult Blood Blood Type Antibody Screen Crossmatch 12/01/17 12/01/17 12/01/17 10:44 10:44 11:37 WBC RBC Hgb Hct MCV MCH MCHC RDW Plt Count MPV Absolute Neuts (auto) Neutrophils % Lymphocytes % Monocytes % Eosinophils % Basophils % Nucleated RBC % Retic Count PT with INR INR Sodium Potassium Chloride Carbon Dioxide Anion Gap BUN Creatinine Creat Clearance w eGFR Random Glucose Calcium Total Bilirubin AST ALT Alkaline Phosphatase Total Protein Albumin Stool Occult Blood Negative Positive Blood Type O POSITIVE Antibody Screen Negative Crossmatch See Detail 12/01/17 13:12 WBC 10.5 H RBC 3.54 L Hgb 10.6 L Hct 31.7 L D MCV 89.6 MCH 29.9 MCHC 33.3 RDW 13.5 Plt Count 330 MPV 8.0 Absolute Neuts (auto) 7.8 Neutrophils % 75.1 D Lymphocytes % 17.7 D Monocytes % 6.2 Eosinophils % 0.8 Basophils % 0.2 Nucleated RBC % 0 Retic Count PT with INR INR Sodium Potassium Chloride Carbon Dioxide Anion Gap BUN Creatinine Creat Clearance w eGFR Random Glucose Calcium Total Bilirubin AST ALT Alkaline Phosphatase Total Protein Albumin Stool Occult Blood Blood Type Antibody Screen Crossmatch Active Medications Generic Name Dose Route Start Last Admin Trade Name Magdi PRN Reason Stop Dose Admin Chlorhexidine Gluconate 1 applic 12/01/17 22:00 Hibiclens For Decolonization - TP HS GINA Sodium Chloride 1,000 mls @ 100 mls/hr 12/01/17 14:15 Normal Saline - IV ASDIR GINA Mupirocin 1 applic 12/01/17 22:00 Bactroban Ointment (For Decolonization) - NS 12/06/17 21:59 BID GINA Pantoprazole Sodium 40 mg 12/01/17 14:05 Protonix Iv IVPUSH BID GINA ASSESSMENT/PLAN: 47 yo F, with PMH of endometrial cancer s/p total hysterectomy , HTN, and nephrolithiasis s/p R ureteral stent, presents with rectal bleeding. Considering cancer metastasis, colitis/diverticulitis, C diff. 1. Cardiac HTN - continue Losartan 25 mg PO BID 2. GI Rectal bleeding - Started 40 mg IV Protonix BID scheduled. NG tube placed in ER. Intermittent suctioning (informed ER nurse). Dr. Franz will perform endoscopy and colonoscopy to r/o source of bleed. 2 units PRBCs ordered from blood bank, awaiting 3rd H/H (spoke to Dr. Rodriguez in ER who will draw and send). H/H dropped 12.5 to 10.5 while pt in ER. Will monitor stools and order C diff cultures if necessary. 3. Pt was supposed to have R ureteral stent removed today. Consulted Dr. Russell to follow pt. 4. Heme/Onc Will monitor H/H and transfuse as stated above. S/p complete hysterectomy, will monitor. Dispo: We will continue to follow the patient. Thank you for this consultative opportunity. Problem List - Problems (1) Rectal bleeding Code(s): K62.5 - HEMORRHAGE OF ANUS AND RECTUM (2) Endometrial adenocarcinoma Code(s): C54.1 - MALIGNANT NEOPLASM OF ENDOMETRIUM (3) HTN (hypertension) Code(s): I10 - ESSENTIAL (PRIMARY) HYPERTENSION Visit type - Emergency Visit Emergency Visit: Yes ED Registration Date: 12/01/17 Care time: The patient presented to the Emergency Department on the above date and was hospitalized for further evaluation of their emergent condition. - New Patient This patient is new to me today: Yes Date on this admission: 12/01/17 - Critical Care Critical Care patient: No
[2017-12-01] MEDS: PANTOPRAZOLE SODIUM 40 MG VIAL IVPUSH SCH ×2 (14:43→21:59)
--- NOTE | 2017-12-01 15:02 | CON.GI ---
Consult Consult Specialty:: GI Referred by:: Hospitalist service Reason for Consultation:: Rectal bleeding - History of Present Illness Chief Complaint: Rectal bleeding. 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 for evaluation of rectal bleeding. She states that this past friday she noticed a scant amount of red rectal bleeding mixed with brown stool. There was no bleeding friday/friday. This morning she began experiencing rectal bleeding again with passage of clots as well. She had rectal bleeding in the ER. Triage vitals revealed T: 98.8 P: 111 BP: 143/88. Initial Hgb @ 10:35 revealed normal WBC and Hgb 12.5. She was bolused 1 L of NS. She was going for CT scan for evaluation of abdominal pain. I began evaluating her while she was waiting in the wheelchair for the CT scan. She stated that while waiting she had had 3 more bloody movements. her pulse was 130. While I was looking for a BP cuff she went to the bathroom, had another bloody BM and felt as though she was going to pass out. Rapid response was called and she was brought back to the ED. She was continued on fluids with pulse improving to the low 100's and improved clinically. She denied abdominal pain but did experience cramping when having the bloody bowel movements. She took two aleve pills on friday for "kidney pain" and possibly the day prior to that. She denies nausea, vomiting, vomiting of blood or similar episodes in the past. She has never had an upper endoscopy or colonoscopy. There is no family history of colorectal cancer or other GI malignancy. She was supposed to have a urological procedure today. - History Source History Provided By: Patient, Family Member (sister in law present at bedside) - Past Medical History Cardio/Vascular: Yes: HTN Renal/: Yes: Renal Calculi ...LMP: 03/01/16 - Past Surgical History Past Surgical History: Yes: None Additional Surgical History: Ureteral stent placement 11/12/17 - Alcohol/Substance Use Hx Alcohol Use: Yes (occasional) History of Substance Use: reports: None - Smoking History Smoking history: Never smoked Have you smoked in the past 12 months: No Aproximately how many cigarettes per day: 0 - Social History Usual Living Arrangement: With Spouse ADL: Independent 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 (year): History of Recent Travel: No Home Medications - Allergies Allergies/Adverse Reactions: Allergies Allergy/AdvReac Type Severity Reaction Status Date / Time Tetanus Vaccines and Toxoid Allergy Severe Rash Verified 12/01/17 09:45 - Home Medications Home Medications: Ambulatory Orders Losartan Potassium [Cozaar] 25 mg PO BID 07/20/12 Family Disease History - Family Disease History Family Disease History: Other: Father (: 49: etoh cirrhosis), Mother (Alive : healthy), Brother (3 healthy) Other Family History: No children. No family history of colorectal cancer or other GI malignancy Review of Systems - Review of Systems Constitutional: denies: Chills Cardiovascular: denies: Chest Pain Respiratory: denies: Cough, SOB Physical Exam-GI Vital Signs: Vital Signs Temperature 99.0 F oral 12/01/17 13:36 Pulse Rate 98 H 12/01/17 13:36 Respiratory Rate 18 12/01/17 13:36 Blood Pressure 124/90 12/01/17 13:36 O2 Sat by Pulse Oximetry (%) 98 % 12/01/17 13:36 Constitutional: Yes: Calm Eyes: No: Sclera Icterus Cardiovascular: Yes: Tachycardia. No: Murmur Respiratory: Yes: CTA Bilaterally Gastrointestinal Inspection: No: Distention ...Auscultate: Yes: Normoactive Bowel Sounds ...Palpate: No: Hepatomegaly, Splenomegaly, Tenderness ...Percussion: No: Tympanitic ...Rectal Exam: Yes: Other (shovel engineer present: no external lesions, no masses, brown liquid stool and blood on glove) Edema: No (No LE edema) Neurological: Yes: Alert, Oriented Labs: CBC, BMP 12/01/17 13:12 12/01/17 10:35 INR, PTT INR 1.04 (0.83-1.09) 12/01/17 10:35 Hepatic Panel Total Bilirubin 0.4 mg/dL (0.2-1.0) 12/01/17 10:35 AST 14 U/L (15-37) L 12/01/17 10:35 ALT 24 U/L (12-78) 12/01/17 10:35 Alkaline Phosphatase 106 U/L (45-117) 08/27/18 10:35 Albumin 3.6 g/dl (3.4-5.0) 12/01/17 10:35 Problem List - Problems (1) Rectal bleeding Assessment/Plan: Painless hematochezia with orthostasis and resting tachycardia. vitals improved with fluid bolus Advise: NPO ICU admission Placement of NGT for golytely prep IV Hydration / continued resuscitation Protonix 40mg IVPB BID for now Monitor for continued active bleeding. If so, transfuse 1 U PRBC Surgical evaluation Discussed EGD/Colonoscopy to assess for upper/lower source of bleeding. Discussed potential risks of procedures like but not limited to bleeding, perforation requiring surgery to repair, infection, sedation medication effects all of which could be potentially life threatening. he sister in law was present during the conversation and . Jerome Cao has agreed to the procedures. Timing of procedures to be determined by clincial course Code(s): K62.5 - HEMORRHAGE OF ANUS AND RECTUM
--- NOTE | 2017-12-01 16:10 | CONSULT ---
- Consultation REQUESTING PROVIDER: MD Brandy CONSULT REQUEST: We have been asked to surgically evaluate this patient for rectal bleeding. PCP:Tory Henao HISTORY OF PRESENT ILLNESS: CTSP for evaluation and management of rectal bleeding which started earlier today; she was due to have ESWL today for ongoing renal stones; it ws cancelled ; she had # episoes of BRBPR associated w/ crampy non specific abdominal pain; she never had this before and denies straining and or constipation and any other GI//CLIENT RELATIONSHIP EXECUTIVE c/o's; she came to the ER for evaluation; she had some orthostatic changes in the ER which responded to fluid boluses; she has no otrher c/o; she has never had a colonoscopy. PMHx: hypertension; nephrolithiasis PSHx: TAHBSO for FIGO1 endometrial carcinoma Home Medications Medication Instructions Recorded Losartan Potassium [Cozaar] 25 mg PO BID 07/20/12 Allergies Allergy/AdvReac Type Severity Reaction Status Date / Time Tetanus Vaccines and Toxoid Allergy Severe Rash Verified 12/01/17 09:45 REVIEW OF SYSTEMS: CONSTITUTIONAL: Absent: fever, chills, diaphoresis, generalized weakness, malaise, loss of appetite, weight change CARDIOVASCULAR: Absent: chest pain, syncope, palpitations, irregular heart rate, lightheadedness , peripheral edema RESPIRATORY: Absent: cough, shortness of breath, dyspnea with exertion, wheezing, stridor, hemoptysis GASTROINTESTINAL: Absent: abdominal pain, abdominal distension, nausea, vomiting, diarrhea, constipation, melena, hematochezia GENITOURINARY: Present: hematuria, flank pain, Absent: myalgia, arthralgia, joint swelling, back pain, neck pain SKIN: Absent: rash, itching, pallor HEMATOLOGIC/IMMUNOLOGIC: Absent: easy bleeding, easy bruising, lymphadenopathy NEUROLOGIC: Absent: headache, focal weakness, paresthesias, dizziness, unsteady gait, seizure, mental status changes, bladder or bowel incontinence PSYCHIATRIC: Absent: anxiety, depression, suicidal or homicidal ideation, hallucinations. PHYSICAL EXAM: GENERAL: Awake, alert, and fully oriented, in no acute distress. HEAD: Normal with no signs of trauma. EYES: sclera anicteric, conjunctiva clear. NECK: Normal ROM, supple without lymphadenopathy, JVD, or masses. ABDOMEN: Soft, obese and nontender, not distended, normoactive bowel sounds, no guarding, no rebound, no masses. No organomegaly. No hernias MUSCULOSKELETAL: Normal ROM at all joints. No bony deformities or tenderness. No CVA tenderness. UPPER EXTREMITIES: 2+ pulses, warm, well-perfused. No cyanosis. Cap refill <2 seconds. No peripheral edema. LOWER EXTREMITIES: 2+ pulses, warm, well-perfused. No calf tenderness. No peripheral edema. NEUROLOGICAL: Normal speech, gait not observed. PSYCH: Cooperative. Good eye contact. Appropriate mood and affect. SKIN: Warm, dry, normal turgor, no rashes or lesions noted. Vital Signs Temperature 98.0 F 12/01/17 13:36 Pulse Rate 98 H 12/01/17 13:36 Respiratory Rate 18 12/01/17 13:36 Blood Pressure 124/90 12/01/17 13:36 O2 Sat by Pulse Oximetry (%) 98 12/01/17 13:36 Lab Results WBC 10.5 K/mm3 (4.0-10.0) H 12/01/17 13:12 RBC 3.54 M/mm3 (3.60-5.2) L 12/01/17 13:12 Hgb 10.6 GM/dL (10.7-15.3) L 12/01/17 13:12 Hct 31.7 % (32.4-45.2) L D 12/01/17 13:12 MCV 89.6 fl (80-96) 12/01/17 13:12 MCHC 33.3 g/dl (32.0-36.0) 12/01/17 13:12 RDW 13.5 % (11.6-15.6) 12/01/17 13:12 Plt Count 330 K/MM3 (134-434) 12/01/17 13:12 Sodium 143 mmol/L (136-145) 12/01/17 10:35 Potassium 4.1 mmol/L (3.5-5.1) 12/01/17 10:35 Chloride 108 mmol/L (98-107) H 12/01/17 10:35 Carbon Dioxide 25 mmol/L (21-32) 12/01/17 10:35 Anion Gap 10 MMOL/L (8-16) 12/01/17 10:35 BUN 12 mg/dL (7-18) 12/01/17 10:35 Creatinine 0.5 mg/dL (0.55-1.02) L 12/01/17 10:35 Random Glucose 107 mg/dL (74-106) H 12/01/17 10:35 Calcium 9.0 mg/dL (8.5-10.1) 12/01/17 10:35 Blood Type O POSITIVE 12/01/17 10:44 Antibody Screen Negative 12/01/17 10:44 INR 1.04 (0.83-1.09) 12/01/17 10:35 IMP: LGIB; most likely diverticular in nature vs. other PLAN: Admit to ICU; IVF/resuscitation; PRBC's to keep h/h >10/30; GI evaluation (done); CT scan a/p; will f/u Antony Light MD FACS
[2017-12-01 16:43] LABS: BASO % 0.5 % (0-2.0); EOS % 0.1 % (0-4.5); HEMATOCRIT 27.9 % (32.4-45.2); HEMOGLOBIN 9.5 GM/dL (10.7-15.3); LYMPH % 12.4 % (8-40); MCH 30.2 pg (25.7-33.7); MEAN CELL VOLUME 88.8 fl (80-96); MONO % 4.1 % (3.8-10.2); NEUT % 82.9 % (42.8-82.8); PLATELET COUNT 307 K/MM3 (134-434); RBC 3.14 M/mm3 (3.60-5.2); RDW 13.6 % (11.6-15.6); WHITE BLOOD COUNT 8.3 K/mm3 (4.0-10.0)
--- NOTE | 2017-12-01 16:43 | EKG ---
Test Reason : Blood Pressure : / mmHG Vent. Rate : 100 BPM Atrial Rate : 100 BPM P-R Int : 148 ms QRS Dur : 080 ms QT Int : 358 ms P-R-T Axes : 025 011 022 degrees QTc Int : 461 ms NORMAL SINUS RHYTHM NORMAL ECG WHEN COMPARED WITH ECG OF 20-DEC-2016 21:00, VENT. RATE HAS INCREASED BY 33 BPM Confirmed by FLORENTIN LLAMAS MD ([id number]) on 12/01/2017 4:43:15 PM Referred By: Confirmed By:FLORENTIN LLAMAS MD
[2017-12-01 17:00] LABS: URINE APPEARANCE SLCLOUDY; URINE BILIRUBIN NEGATIVE (<2.0 mg/dL); URINE COLOR LTYELLOW; URINE GLUCOSE (UA) 1+ (NEGATIVE); URINE KETONE TRACE (NEGATIVE); URINE NITRITE NEGATIVE (NEGATIVE); URINE PROTEIN NEGATIVE (NEGATIVE); URINE UROBILINOGEN NEGATIVE mg/dL (0.2-1.0)
[2017-12-01 17:12] LABS: URINE LEUK ESTERASE 3+ (NEGATIVE)
[2017-12-01 17:21] LABS: EPI CELLS RARE /HPF (FEW)
[2017-12-01 18:33] VITALS: BMI 33.9
--- NOTE | 2017-12-01 18:46 | HP ---
Admitting History and Physical - Primary Care Physician PCP: Tory Henao - Admission History of Present Illness: Ms. Jerome Cao is a 47 yo F with a hx of nephrolithiasis s/p right ureteral stent placement 2 weeks ago and HTN who presents to the emergency department with rectal bleeding. She states the episode occurred at 9am today. She had an involuntary bowel movement with stool and blood mixed. She denies bright red blood and a hx of hemorrhoids. In addition, she states she had no pain during this episode. Per the patient, she had tarry stools last Friday 1x episode, but had normal movements Friday and Friday. Denies the following: hx of familial colon cancer, NSAID use, hx of gastritis/PUD, use of anticoagulants, and never had a colonoscopy. She was scheduled for a lithotripsy today with Dr. Manuel Rogers at 12:30 pm. Denies the following: fever, headaches, recent visual changes, weakness, chest pain, SOB, abdominal pain, hematuria, vaginal bleeding/discharge , dysuria, and leg pain/swelling. 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 No family history of colorectal cancer or other GI malignancy Physical Examination Vital Signs: Vital Signs Temperature 99.6 F 12/01/17 18:23 Pulse Rate 110 H 12/01/17 18:23 Respiratory Rate 12 12/01/17 18:23 Blood Pressure 123/81 12/01/17 18:23 O2 Sat by Pulse Oximetry (%) 100 12/01/17 18:01 Constitutional: Yes: No Distress HENT: Yes: Atraumatic Neck: Yes: Supple Cardiovascular: Yes: Regular Rate and Rhythm Respiratory: Yes: CTA Bilaterally Gastrointestinal: Yes: Normal Bowel Sounds Extremities: Yes: WNL Edema: No Peripheral Pulses WNL: Yes Neurological: Yes: Alert, Oriented Labs: CBC, BMP 12/01/17 16:34 12/01/17 10:35 Problem List - Problems (1) Rectal bleeding Assessment/Plan: npo , ivf gi and surgery consult prbc transfusion fu cbc Code(s): K62.5 - HEMORRHAGE OF ANUS AND RECTUM (2) HLD (hyperlipidemia) Code(s): E78.5 - HYPERLIPIDEMIA, UNSPECIFIED (3) HTN (hypertension) Assessment/Plan: on meds stable Code(s): I10 - ESSENTIAL (PRIMARY) HYPERTENSION Assessment/Plan Laboratory Tests 12/01/17 12/01/17 12/01/17 10:35 10:35 10:35 WBC 6.4 RBC 4.26 Hgb 12.5 Hct 37.8 MCV 88.7 MCH 29.4 MCHC 33.1 RDW 13.6 D Plt Count 311 D MPV 7.8 Absolute Neuts (auto) 3.8 Neutrophils % 60.5 Lymphocytes % 27.5 Monocytes % 8.6 Eosinophils % 3.0 D Basophils % 0.4 Nucleated RBC % 0 Retic Count 0.97 PT with INR 11.80 INR 1.04 Sodium 143 Potassium 4.1 Chloride 108 H Carbon Dioxide 25 Anion Gap 10 BUN 12 Creatinine 0.5 L Creat Clearance w eGFR > 60 Random Glucose 107 H Calcium 9.0 Total Bilirubin 0.4 AST 14 L ALT 24 Alkaline Phosphatase 106 Total Protein 7.0 Albumin 3.6 Urine Color Urine Appearance Urine pH Ur Specific [place] Urine Protein Urine Glucose (UA) Urine Ketones Urine Blood Urine Nitrite Urine Bilirubin Urine Urobilinogen Ur Leukocyte Esterase Urine WBC (Auto) Urine RBC (Auto) Ur Epithelial Cells Urine HCG, Qual Stool Occult Blood Blood Type Antibody Screen Crossmatch 12/01/17 12/01/17 12/01/17 10:44 10:44 11:37 WBC RBC Hgb Hct MCV MCH MCHC RDW Plt Count MPV Absolute Neuts (auto) Neutrophils % Lymphocytes % Monocytes % Eosinophils % Basophils % Nucleated RBC % Retic Count PT with INR INR Sodium Potassium Chloride Carbon Dioxide Anion Gap BUN Creatinine Creat Clearance w eGFR Random Glucose Calcium Total Bilirubin AST ALT Alkaline Phosphatase Total Protein Albumin Urine Color Urine Appearance Urine pH Ur Specific [place] Urine Protein Urine Glucose (UA) Urine Ketones Urine Blood Urine Nitrite Urine Bilirubin Urine Urobilinogen Ur Leukocyte Esterase Urine WBC (Auto) Urine RBC (Auto) Ur Epithelial Cells Urine HCG, Qual Stool Occult Blood Negative Positive Blood Type O POSITIVE Antibody Screen Negative Crossmatch See Detail 12/01/17 12/01/17 12/01/17 13:12 16:34 16:50 WBC 10.5 H 8.3 RBC 3.54 L 3.14 L Hgb 10.6 L 9.5 L Hct 31.7 L D 27.9 L MCV 89.6 88.8 MCH 29.9 30.2 MCHC 33.3 34.0 RDW 13.5 13.6 Plt Count 330 307 MPV 8.0 8.0 Absolute Neuts (auto) 7.8 6.9 Neutrophils % 75.1 D 82.9 H Lymphocytes % 17.7 D 12.4 D Monocytes % 6.2 4.1 Eosinophils % 0.8 0.1 D Basophils % 0.2 0.5 Nucleated RBC % 0 0 Retic Count PT with INR INR Sodium Potassium Chloride Carbon Dioxide Anion Gap BUN Creatinine Creat Clearance w eGFR Random Glucose Calcium Total Bilirubin AST ALT Alkaline Phosphatase Total Protein Albumin Urine Color Urine Appearance Urine pH Ur Specific [place] Urine Protein Urine Glucose (UA) Urine Ketones Urine Blood Urine Nitrite Urine Bilirubin Urine Urobilinogen Ur Leukocyte Esterase Urine WBC (Auto) Urine RBC (Auto) Ur Epithelial Cells Urine HCG, Qual Negative Stool Occult Blood Blood Type Antibody Screen Crossmatch 12/01/17 16:50 WBC RBC Hgb Hct MCV MCH MCHC RDW Plt Count MPV Absolute Neuts (auto) Neutrophils % Lymphocytes % Monocytes % Eosinophils % Basophils % Nucleated RBC % Retic Count PT with INR INR Sodium Potassium Chloride Carbon Dioxide Anion Gap BUN Creatinine Creat Clearance w eGFR Random Glucose Calcium Total Bilirubin AST ALT Alkaline Phosphatase Total Protein Albumin Urine Color Ltyellow Urine Appearance Slcloudy Urine pH 6.0 Ur Specific [place] 1.012 Urine Protein Negative Urine Glucose (UA) 1+ H Urine Ketones Trace H Urine Blood 3+ H Urine Nitrite Negative Urine Bilirubin Negative Urine Urobilinogen Negative Ur Leukocyte Esterase 3+ H Urine WBC (Auto) 43 Urine RBC (Auto) 8 Ur Epithelial Cells Rare Urine HCG, Qual Stool Occult Blood Blood Type Antibody Screen Crossmatch Active Medications Generic Name Dose Route Start Last Admin Trade Name Magdi PRN Reason Stop Dose Admin Chlorhexidine Gluconate 1 applic 12/01/17 22:00 Hibiclens For Decolonization - TP HS GINA Sodium Chloride 1,000 mls @ 100 mls/hr 12/01/17 14:15 12/01/17 14:43 Normal Saline - IV 100 mls/hr ASDIR GINA Administration Mupirocin 1 applic 12/01/17 22:00 Bactroban Ointment (For Decolonization) - NS 12/06/17 21:59 BID GINA Pantoprazole Sodium 40 mg 12/01/17 14:05 12/01/17 14:43 Protonix Iv IVPUSH 40 mg BID GINA Administration cc time 60 min
[2017-12-01] MEDS ORDERED: PEG3350/SOD SULF,BICARB,CL/KCL 4,000 ML SOLN.RECON PO ONE (19:44)
[2017-12-01] MEDS: MUPIROCIN 2% TOPICAL OINTMENT FOR DECOLONIZATION NS SCH (21:56)
[2017-12-01] MEDS: CHLORHEXIDINE GLUCONATE 4% CLEANSER FOR DECOLONIZATION TP SCH (21:56)
[2017-12-02] MEDS ORDERED: PT OWN MED DRAWER 7, Y5N ONE (01:31)
[2017-12-02 06:48] LABS: BASO % 0.2 % (0-2.0); EOS % 1.2 % (0-4.5); HEMATOCRIT 24.6 % (32.4-45.2); HEMOGLOBIN 8.2 GM/dL (10.7-15.3); LYMPH % 32.1 % (8-40); MCH 29.7 pg (25.7-33.7); MCHC 33.2 g/dl (32.0-36.0); MEAN CELL VOLUME 89.3 fl (80-96); NEUT % 57.5 % (42.8-82.8); PLATELET COUNT 232 K/MM3 (134-434); RBC 2.76 M/mm3 (3.60-5.2); RDW 13.8 % (11.6-15.6)
[2017-12-02 07:10] LABS: ALBUMIN 2.7 g/dl (3.4-5.0); ANION GAP 5 MMOL/L (8-16); BLOOD UREA NITROGEN 9 mg/dL (7-18); CHLORIDE 113 mmol/L (98-107); CO2 27 mmol/L (21-32); GLUCOSE,RANDOM 89 mg/dL (74-106); SGOT/AST 11 U/L (15-37); SGPT/ALT 16 U/L (12-78); SODIUM 145 mmol/L (136-145)
[2017-12-02 07:11] LABS: ANION GAP 6 MMOL/L (8-16); BLOOD UREA NITROGEN 9 mg/dL (7-18); CHLORIDE 112 mmol/L (98-107); CO2 26 mmol/L (21-32); GLUCOSE,RANDOM 89 mg/dL (74-106); MAGNESIUM 1.9 mg/dL (1.8-2.4); SODIUM 144 mmol/L (136-145)
[2017-12-02 07:12] LABS: ALK PHOS 73 U/L (45-117); BILIRUBIN,TOTAL 0.5 mg/dL (0.2-1.0); CREATININE 0.4 mg/dL (0.55-1.02); TOT PROT 5.2 g/dl (6.4-8.2)
[2017-12-02 07:14] LABS: CREATININE 0.4 mg/dL (0.55-1.02)
--- NOTE | 2017-12-02 07:34 | PN ---
Progress Note (short form) - Note Progress Note: surgery patient being followed for Lower GI Bleed seen and examined at bedside with no new complaints. Patient states she is feeling hungry. She is still having diarrhea and denies any CP, palpitations, SOB, N/V, fever or chills. Vital Signs Temp 98.7 F 12/02/17 06:00 Pulse 84 12/02/17 06:00 Resp 18 12/02/17 06:00 BP 116/66 12/02/17 06:00 Pulse Ox 100 12/01/17 20:46 Intake & Output 12/01/17 12/01/17 12/02/17 11:59 23:59 11:59 Intake Total 3000 700 Output Total 600 1400 Balance 2400 -700 Weight 170 lb 173 lb 9.6 oz 177 lb 2 oz Intake: IV 500 700 Normal Saline - 1,000 ml 500 700 @ 100 mls/hr IV ASDIR GINA Rx#:[id number] Oral 2500 Output: Urine 600 1400 Void 600 1400 Other: Voiding Method Toilet Bedpan Bowel Movement Yes Yes # Bowel Movements 2 12 Height 5 ft 5 ft Body Mass Index (BMI) 33.2 33.9 Weight Measurement Method Built in Bedscale Built in Bedscale Weight Measurement Method Est/Stated by Patient 2 CBC, BMP 12/02/17 05:30 12/02/17 05:30 CT ABD/PELVIS: pending Patient going for EGD, colonoscopy this morning Problem List - Problems (1) Rectal bleeding Assessment/Plan: LGIB, most likely diverticular in nature vs. other etiology 1) Continue IVF/resuscitation 2) PRBC's to keep h/h >10/30 3) CT scan a/p 4) Continue NPO 5) follow up EGD and colonoscopy Evaluation and plan discussed with Dr Light Code(s): K62.5 - HEMORRHAGE OF ANUS AND RECTUM
[2017-12-02] MEDS ORDERED: LIDOCAINE HCL/PF 2% SDV 5ML VIAL ONE (08:06)
[2017-12-02] MEDS ORDERED: PROPOFOL 20 ML ONE ×4 (08:06)
--- NOTE | 2017-12-02 08:14 | PN ---
Physical Exam: SUBJECTIVE: Patient seen and examined OBJECTIVE: Vital Signs Period Temp Pulse Resp BP Sys/Upton Pulse Ox Last 24 Hr 98.0 F-99.6 F 84-120 12-20 107-143/46-110 98-100 GENERAL: The patient is awake, alert, and fully oriented, in no acute distress. HEAD: Normal with no signs of trauma. EYES: PERRL, extraocular movements intact, sclera anicteric, conjunctiva clear. No ptosis. ENT: Ears normal, nares patent, oropharynx clear without exudates, moist mucous membranes. NECK: Trachea midline, full range of motion, supple. LUNGS: Breath sounds equal, clear to auscultation bilaterally, no wheezes, no crackles, no accessory muscle use. HEART: Regular rate and rhythm, S1, S2 without murmur, rub or gallop. ABDOMEN: Soft, nontender, nondistended, normoactive bowel sounds, no guarding, no rebound, no hepatosplenomegaly, no masses. EXTREMITIES: 2+ pulses, warm, well-perfused, no edema. NEUROLOGICAL: Cranial nerves II through XII grossly intact. Normal speech, gait not observed. PSYCH: Normal mood, normal affect. SKIN: Warm, dry, normal turgor, no rashes or lesions noted Laboratory Results - last 24 hr 12/01/17 12/01/17 12/01/17 10:35 10:35 10:35 WBC 6.4 RBC 4.26 Hgb 12.5 Hct 37.8 MCV 88.7 MCH 29.4 MCHC 33.1 RDW 13.6 D Plt Count 311 D MPV 7.8 Absolute Neuts (auto) 3.8 Neutrophils % 60.5 Lymphocytes % 27.5 Monocytes % 8.6 Eosinophils % 3.0 D Basophils % 0.4 Nucleated RBC % 0 Retic Count 0.97 PT with INR 11.80 INR 1.04 PTT (Actin FS) Sodium 143 Potassium 4.1 Chloride 108 H Carbon Dioxide 25 Anion Gap 10 BUN 12 Creatinine 0.5 L Creat Clearance w eGFR > 60 Random Glucose 107 H Calcium 9.0 Phosphorus Magnesium Total Bilirubin 0.4 AST 14 L ALT 24 Alkaline Phosphatase 106 Total Protein 7.0 Albumin 3.6 Urine Color Urine Appearance Urine pH Ur Specific [place] Urine Protein Urine Glucose (UA) Urine Ketones Urine Blood Urine Nitrite Urine Bilirubin Urine Urobilinogen Ur Leukocyte Esterase Urine WBC (Auto) Urine RBC (Auto) Ur Epithelial Cells Urine HCG, Qual Stool Occult Blood Blood Type Antibody Screen Crossmatch 12/01/17 12/01/17 12/01/17 10:44 10:44 11:37 WBC RBC Hgb Hct MCV MCH MCHC RDW Plt Count MPV Absolute Neuts (auto) Neutrophils % Lymphocytes % Monocytes % Eosinophils % Basophils % Nucleated RBC % Retic Count PT with INR INR PTT (Actin FS) Sodium Potassium Chloride Carbon Dioxide Anion Gap BUN Creatinine Creat Clearance w eGFR Random Glucose Calcium Phosphorus Magnesium Total Bilirubin AST ALT Alkaline Phosphatase Total Protein Albumin Urine Color Urine Appearance Urine pH Ur Specific [place] Urine Protein Urine Glucose (UA) Urine Ketones Urine Blood Urine Nitrite Urine Bilirubin Urine Urobilinogen Ur Leukocyte Esterase Urine WBC (Auto) Urine RBC (Auto) Ur Epithelial Cells Urine HCG, Qual Stool Occult Blood Negative Positive Blood Type O POSITIVE Antibody Screen Negative Crossmatch See Detail 12/01/17 12/01/17 12/01/17 13:12 16:34 16:50 WBC 10.5 H 8.3 RBC 3.54 L 3.14 L Hgb 10.6 L 9.5 L Hct 31.7 L D 27.9 L MCV 89.6 88.8 MCH 29.9 30.2 MCHC 33.3 34.0 RDW 13.5 13.6 Plt Count 330 307 MPV 8.0 8.0 Absolute Neuts (auto) 7.8 6.9 Neutrophils % 75.1 D 82.9 H Lymphocytes % 17.7 D 12.4 D Monocytes % 6.2 4.1 Eosinophils % 0.8 0.1 D Basophils % 0.2 0.5 Nucleated RBC % 0 0 Retic Count PT with INR INR PTT (Actin FS) Sodium Potassium Chloride Carbon Dioxide Anion Gap BUN Creatinine Creat Clearance w eGFR Random Glucose Calcium Phosphorus Magnesium Total Bilirubin AST ALT Alkaline Phosphatase Total Protein Albumin Urine Color Urine Appearance Urine pH Ur Specific [place] Urine Protein Urine Glucose (UA) Urine Ketones Urine Blood Urine Nitrite Urine Bilirubin Urine Urobilinogen Ur Leukocyte Esterase Urine WBC (Auto) Urine RBC (Auto) Ur Epithelial Cells Urine HCG, Qual Negative Stool Occult Blood Blood Type Antibody Screen Crossmatch 12/01/17 12/02/17 12/02/17 16:50 05:30 05:30 WBC RBC Hgb Hct MCV MCH MCHC RDW Plt Count MPV Absolute Neuts (auto) Neutrophils % Lymphocytes % Monocytes % Eosinophils % Basophils % Nucleated RBC % Retic Count PT with INR INR PTT (Actin FS) 24.3 L Sodium 144 Potassium 4.0 Chloride 112 H Carbon Dioxide 26 Anion Gap 6 L BUN 9 Creatinine 0.4 L Creat Clearance w eGFR > 60 Random Glucose 89 Calcium 8.0 L Phosphorus 3.0 Magnesium 1.9 Total Bilirubin AST ALT Alkaline Phosphatase Total Protein Albumin Urine Color Ltyellow Urine Appearance Slcloudy Urine pH 6.0 Ur Specific [place] 1.012 Urine Protein Negative Urine Glucose (UA) 1+ H Urine Ketones Trace H Urine Blood 3+ H Urine Nitrite Negative Urine Bilirubin Negative Urine Urobilinogen Negative Ur Leukocyte Esterase 3+ H Urine WBC (Auto) 43 Urine RBC (Auto) 8 Ur Epithelial Cells Rare Urine HCG, Qual Stool Occult Blood Blood Type Antibody Screen Crossmatch 12/02/17 12/02/17 05:30 05:30 WBC 6.0 RBC 2.76 L Hgb 8.2 L Hct 24.6 L MCV 89.3 MCH 29.7 MCHC 33.2 RDW 13.8 Plt Count 232 D MPV 8.0 Absolute Neuts (auto) 3.5 Neutrophils % 57.5 D Lymphocytes % 32.1 D Monocytes % 9.0 D Eosinophils % 1.2 D Basophils % 0.2 Nucleated RBC % 0 Retic Count PT with INR INR PTT (Actin FS) Sodium 145 Potassium 4.0 Chloride 113 H Carbon Dioxide 27 Anion Gap 5 L BUN 9 Creatinine 0.4 L Creat Clearance w eGFR > 60 Random Glucose 89 Calcium 8.0 L Phosphorus Magnesium Total Bilirubin 0.5 AST 11 L ALT 16 Alkaline Phosphatase 73 D Total Protein 5.2 L Albumin 2.7 L Urine Color Urine Appearance Urine pH Ur Specific [place] Urine Protein Urine Glucose (UA) Urine Ketones Urine Blood Urine Nitrite Urine Bilirubin Urine Urobilinogen Ur Leukocyte Esterase Urine WBC (Auto) Urine RBC (Auto) Ur Epithelial Cells Urine HCG, Qual Stool Occult Blood Blood Type Antibody Screen Crossmatch Active Medications Generic Name Dose Route Start Last Admin Trade Name Freq PRN Reason Stop Dose Admin Chlorhexidine Gluconate 1 applic 12/01/17 22:00 12/01/17 21:56 Hibiclens For Decolonization - TP 1 applic HS GINA Administration Sodium Chloride 1,000 mls @ 100 mls/hr 12/01/17 14:15 12/01/17 14:43 Normal Saline - IV 100 mls/hr ASDIR GINA Administration Mupirocin 1 applic 12/01/17 22:00 12/01/17 21:56 Bactroban Ointment (For Decolonization) - NS 12/06/17 21:59 1 applic BID GINA Administration Pantoprazole Sodium 40 mg 12/01/17 14:05 12/01/17 21:59 Protonix Iv IVPUSH 40 mg BID GINA Administration ASSESSMENT/PLAN: 47 yo F, with PMH of endometrial cancer s/p total hysterectomy , HTN, and nephrolithiasis s/p R ureteral stent, presents with rectal bleeding. Considering cancer metastasis, colitis/diverticulitis, C diff. 1. Cardiac HTN - continue Losartan 25 mg PO BID if necessary. BP has been stable (today 119 /81) 2. GI Rectal bleeding - Started 40 mg IV Protonix BID scheduled. NG tube placed in ER. Intermittent suctioning (informed ER nurse). Dr. Franz will performed upper and lower scope today - showed gastritis ( 2 biopsies taken) and diverticulosis - no site of active bleeding. 2 units PRBCs ordered from blood bank, H/H dropped 12.5 to 10.5 while pt in ER. H/H 8.2/24.6 today. Holding on transfusion, as no active bleeding since scope today. Pt had small firm BM today (no bleeding since yesterday), and tolerated clear liquid for lunch. Will upgrade to full diet and d/c fluids. No continued diarrhea, will not order C diff cultures, as diarrhea resolved. 3. Pt was supposed to have R ureteral stent removed today. Dr. Russell stated that pt can follow-up for shock wave lithotripsy and stent removal. 4. Heme/Onc Will monitor H/H and transfuse as needed. S/p complete hysterectomy, will monitor. 5. Electrolytes Pt takes K citrate 10 meq BID. Placed in home med list. Replete as needed. 6. Prophylaxis SCDs Disposition: transfer to floor unit. Problem List - Problems (1) Rectal bleeding Code(s): K62.5 - HEMORRHAGE OF ANUS AND RECTUM (2) Endometrial adenocarcinoma Code(s): C54.1 - MALIGNANT NEOPLASM OF ENDOMETRIUM (3) HTN (hypertension) Code(s): I10 - ESSENTIAL (PRIMARY) HYPERTENSION Visit type - Emergency Visit Emergency Visit: Yes ED Registration Date: 12/01/17 Care time: The patient presented to the Emergency Department on the above date and was hospitalized for further evaluation of their emergent condition. - New Patient This patient is new to me today: No - Critical Care Critical Care patient: Yes Total Critical Care Time (in minutes): 30 Critical Care Statement: The care of this patient involved high complexity decision making to prevent further life threatening deterioration of the patient 's condition and/or to evaluate & treat vital organ system(s) failure or risk of failure. - Discharge Referral Referred to [facility] Med [facility].: Yes
--- NOTE | 2017-12-02 08:59 | PN ---
Progress Note (short form) - Note Progress Note: EGD/COlon complete: reports placed in procedural section of physical chart and to be scanned into [facility] Problem List - Problems (1) Rectal bleeding Code(s): K62.5 - HEMORRHAGE OF ANUS AND RECTUM
[2017-12-02] MEDS: MUPIROCIN 2% TOPICAL OINTMENT FOR DECOLONIZATION NS SCH ×2 (11:04→21:09)
--- NOTE | 2017-12-02 12:33 | PN ---
Teaching Attending Note Name of Resident: Cher Astorga ATTENDING PHYSICIAN STATEMENT I saw and evaluated the patient. I reviewed the resident's note and discussed the case with the resident. I agree with the resident's findings and plan as documented. SUBJECTIVE: Pt seen and examined in the ICU. s/p EGD/colonoscopy showing gastritis and diverticulosis. No further bleeding. No shortness of breath or chest pain. OBJECTIVE: Vital Signs Period Temp Pulse Resp BP Sys/Upton Pulse Ox Last 24 Hr 98.0 F-99.6 F 84-110 12-20 107-124/46-90 98-100 Intake & Output 11/29/17 11/30/17 12/01/17 12/02/17 23:59 23:59 23:59 23:59 Intake Total 3000 1300 Output Total 600 1400 Balance 2400 -100 Weight 78.744 kg 80.343 kg Gen: NAD at rest Heart: RRR Lung: decreased breath sounds at the bases Abd: soft, nontender Ext: no edema CBC, BMP 12/02/17 05:30 12/02/17 05:30 Active Medications Chlorhexidine Gluconate (Hibiclens For Decolonization -) 1 applic TP HS GINA Last Admin: 12/01/17 21:56 Dose: 1 applic Sodium Chloride (Normal Saline -) 1,000 mls @ 100 mls/hr IV ASDIR GINA Last Admin: 12/01/17 14:43 Dose: 100 mls/hr Mupirocin (Bactroban Ointment (For Decolonization) -) 1 applic NS BID GINA Stop: 12/06/17 21:59 Last Admin: 12/02/17 11:04 Dose: 1 applic Pantoprazole Sodium (Protonix -) 20 mg PO DAILY [facility] ASSESSMENT AND PLAN: GI Bleed Diverticulosis Gastritis Acute Blood Loss Anemia HTN h/o Endometrial Ca Nephrolithiasis s/p R ureteral stent placement - monitor H/H - transfuse as needed - PO per GI - d/c IVF if tolerating PO - OOB to chair - f/u pathology - DVT prophylaxis - can monitor on floor
[2017-12-02] MEDS: CHLORHEXIDINE GLUCONATE 4% CLEANSER FOR DECOLONIZATION TP SCH (21:10)
--- NOTE | 2017-12-02 21:59 | PN ---
Progress Note, Physician History of Present Illness: doing well - Current Medication List Current Medications: Active Medications Chlorhexidine Gluconate (Hibiclens For Decolonization -) 1 applic TP HS GINA Last Admin: 12/02/17 21:10 Dose: 1 applic Mupirocin (Bactroban Ointment (For Decolonization) -) 1 applic NS BID GINA Stop: 12/06/17 21:59 Last Admin: 12/02/17 21:09 Dose: 1 applic Pantoprazole Sodium (Protonix -) 20 mg PO DAILY [facility] - Objective Vital Signs: Vital Signs Temperature 98.1 F 12/02/17 10:30 Pulse Rate 83 12/02/17 20:00 Respiratory Rate 16 12/02/17 20:00 Blood Pressure 119/55 12/02/17 20:00 O2 Sat by Pulse Oximetry (%) 100 12/02/17 19:34 Constitutional: Yes: No Distress HENT: Yes: Atraumatic Neck: Yes: Supple Cardiovascular: Yes: Regular Rate and Rhythm Respiratory: Yes: CTA Bilaterally Gastrointestinal: Yes: Normal Bowel Sounds Extremities: Yes: WNL Neurological: Yes: Alert, Oriented Labs: CBC, BMP 12/02/17 05:30 12/02/17 05:30 INR, PTT INR 1.04 (0.83-1.09) 12/01/17 10:35 Problem List - Problems (1) Rectal bleeding Assessment/Plan: no more gi bleeding egd done on clear liquid diet Code(s): K62.5 - HEMORRHAGE OF ANUS AND RECTUM (2) HLD (hyperlipidemia) Code(s): E78.5 - HYPERLIPIDEMIA, UNSPECIFIED (3) HTN (hypertension) Assessment/Plan: on meds stable Code(s): I10 - ESSENTIAL (PRIMARY) HYPERTENSION
[2017-12-03 07:46] LABS: BASO % 0.4 % (0-2.0); HEMATOCRIT 23.9 % (32.4-45.2); LYMPH % 31.2 % (8-40); MCH 29.4 pg (25.7-33.7); MCHC 33.3 g/dl (32.0-36.0); MEAN CELL VOLUME 88.2 fl (80-96); MEAN PLT VOLUME 7.9 fl (7.5-11.1); MONO % 9.5 % (3.8-10.2); NEUT % 53.9 % (42.8-82.8); PLATELET COUNT 234 K/MM3 (134-434); RBC 2.71 M/mm3 (3.60-5.2); RDW 13.5 % (11.6-15.6); WHITE BLOOD COUNT 6.9 K/mm3 (4.0-10.0)
--- NOTE | 2017-12-03 08:19 | PN ---
Progress Note (short form) - Note Progress Note: 47 yo female admitted with LGIB. Followed by GI/DiGiorno who scoped patient (EGD /Colonoscopy) which identified a few bleeding diverticula. Currently, patient resting comfortably without complaint. States no more episodes of bloody bm's. Tolerating clear liquid diet. Denies n/v/f/c, CP, SOB, SMITH, palpitations or weakness. Last Vital Signs Temp Pulse Resp BP Pulse Ox 98.3 F 82 18 127/72 100 12/03/17 01:42 12/03/17 01:42 12/03/17 01:44 12/03/17 01:42 12/03/17 01:44 H/H TREND 12/01/17 12/01/17 12/02/17 12/03/17 13:12 16:34 05:30 06:30 Hgb 10.6 L 9.5 L 8.2 L 8.0 Hct 31.7 L D 27.9 L 24.6 L 23.9 INR, PTT INR 1.04 (0.83-1.09) 12/01/17 10:35 Blood Type Blood Type O POSITIVE 12/01/17 10:44 Gen: alert. nad Abd: obese habitus. soft. nt. nd. + bs in all quadrants LE: soft. nt bilat Problem List - Problems (1) Diverticulosis Assessment/Plan: Transuse PRBC to keep HH 10/30 OOB and ambulate Advance diet as tolerated Cont medical management Above plan discussed with Dr. Ligth and agrees Code(s): K57.90 - DVRTCLOS OF INTEST, PART UNSP, W/O PERF OR ABSCESS W/O BLEED Qualifiers: Diverticulosis bleeding: diverticulosis with bleeding
[2017-12-03 08:39] LABS: ALK PHOS 76 U/L (45-117); ANION GAP 9 MMOL/L (8-16); BILIRUBIN,TOTAL 0.3 mg/dL (0.2-1.0); BLOOD UREA NITROGEN 8 mg/dL (7-18); CALCIUM 8.5 mg/dL (8.5-10.1); CHLORIDE 108 mmol/L (98-107); CO2 28 mmol/L (21-32); CREATININE 0.5 mg/dL (0.55-1.02); GLUCOSE,RANDOM 87 mg/dL (74-106); POTASSIUM 3.7 mmol/L (3.5-5.1); SGOT/AST 12 U/L (15-37); SGPT/ALT 17 U/L (12-78); SODIUM 145 mmol/L (136-145); TOT PROT 5.7 g/dl (6.4-8.2)
[2017-12-03] MEDS ORDERED: PANTOPRAZOLE 20 MG TABLET (FP) PO SCH ×2 (10:30)
[2017-12-03 14:28] VITALS: BP 98/66; PULSE 83; TEMP 98.7
--- NOTE | 2017-12-03 17:27 | PN ---
GI Progress Note Subjective: No bleeding No abdominal pain Had soft BM later today - Objective Vital Signs: Vital Signs Temperature 98.7 F 12/03/17 14:00 Pulse Rate 83 12/03/17 14:00 Respiratory Rate 20 12/03/17 14:00 Blood Pressure 98/66 12/03/17 14:00 O2 Sat by Pulse Oximetry (%) 100 12/03/17 09:00 Constitutional: Calm Eyes: No: Sclera Icterus Cardiovascular: Yes: Regular Rate and Rhythm Respiratory: Yes: CTA Bilaterally Gastrointestinal Inspection: No: Distention ...Auscultate: Yes: Normoactive Bowel Sounds ...Palpate: No: Hepatomegaly, Splenomegaly, Tenderness Edema: No (No LE edema) Neurological: Yes: Alert Labs: CBC, BMP 12/03/17 06:30 12/03/17 06:30 INR, PTT INR 1.04 (0.83-1.09) 12/01/17 10:35 Problem List - Problems (1) Diverticular hemorrhage Assessment/Plan: No further bleeding Diet being advanced this evening Added ferrous sulfate 325mg once daily along with Vitamin C 500mg daily Avoidance of NSAIDs Avoidance of strenuous activity until H/H improved Follow-up in office in 1-2 weeks Code(s): K57.31 - DVRTCLOS OF LG INT W/O PERFORATION OR ABSCESS W BLEEDING
[2017-12-03] MEDS ORDERED: FERROUS SO4 325 MG TABLET (FP) PO SCH (17:30)
[2017-12-03] MEDS ORDERED: ASCORBIC ACID 500 MG TABLET (FP) PO SCH (17:30)
--- NOTE | 2017-12-03 18:21 | PATH ---
Surgical Pathology Report Patient Name: SAKSHI RICHEY [facility]. Rec. #: [id number] /Age/Gender: 1970 (Age: 47) / F Account: [id number] Location: [address] [place] [address] Taken: 12/02/2017 Received: 12/02/2017 Reported: 12/03/2017 Physicians: Andre Morton M.D. Specimen(s) Received A: BX PYLORUS B: BX BODY AND STOMACH Clinical History GI bleed Postoperative diagnosis: gastritis, diverticulosis Final Diagnosis A. PYLORUS, BIOPSY: GASTRIC MUCOSA WITH ACTIVE CHRONIC GASTRITIS. POSITIVE FOR INTESTINAL METAPLASIA. IMMUNOSTAIN IS POSITIVE FOR H. PYLORI ORGANISMS. B. BODY OF STOMACH, BIOPSY: GASTRIC MUCOSA WITH ACTIVE CHRONIC GASTRITIS. IMMUNOSTAIN IS POSITIVE FOR H. PYLORI ORGANISMS. Electronically Signed Kwame Razo M.D. Gross Description A. Received in formalin, labeled "biopsy pylorus" is a canales, irregular portion of soft tissue measuring 0.4 cm. in greatest dimension. The specimen is submitted in toto in one cassette. B. Received in formalin, labeled "biopsy body of stomach" are 2 canales, irregular portions of soft tissue measuring 0.2 and 0.4 cm. in greatest dimension. The specimens are submitted in toto in one cassette. [facility]
--- NOTE | 2017-12-03 19:57 | DS ---
Physical Examination Vital Signs: Vital Signs Temperature 98.7 F 12/03/17 14:00 Pulse Rate 83 12/03/17 14:00 Respiratory Rate 20 12/03/17 14:00 Blood Pressure 98/66 12/03/17 14:00 O2 Sat by Pulse Oximetry (%) 100 12/03/17 09:00 Constitutional: Yes: No Distress HENT: Yes: Atraumatic Neck: Yes: Supple Cardiovascular: Yes: Regular Rate and Rhythm Respiratory: Yes: CTA Bilaterally Gastrointestinal: Yes: Normal Bowel Sounds Extremities: Yes: WNL Edema: No Peripheral Pulses WNL: Yes Neurological: Yes: Alert, Oriented Labs: CBC, BMP 12/03/17 06:30 12/03/17 06:30 Discharge Summary Reason For Visit: GASTROINTESTINAL HEMORRAHAGE Current Active Problems Diverticular hemorrhage (Acute) Diverticulosis (Acute) Lower GI bleed (Acute) Rectal bleeding (Acute) Condition: Fair - Instructions Disposition: HOME - Home Medications Comprehensive Discharge Medication List: Ambulatory Orders Losartan Potassium [Cozaar -] 25 mg PO BID 07/20/12 Potassium Citrate [Potassium Citrate ER] 10 meq PO BID 12/02/17 Ferrous Sulfate [Feosol] 325 mg PO DAILY #30 ud 12/03/17 doing well tolerating diet dc home fu gi/pmd next week d/w patient
== END 2017-12-03 20:22 | disposition home or self-care (01) | DRG 244 ==
LOC: JER 09:43 → JERBED 11:12 → JICU 18:11 → J6S 12-03 01:21
PROVIDERS: ADMIT Internal Medicine; ATTEND Internal Medicine
PROC: 0DJD8ZZ Inspection of Lower Intestinal Tract, Via Natural or Artificial Opening Endoscopic (ICD-10-PCS; 2017-12-02)
PROC: 0DD68ZX Extraction of Stomach, Via Natural or Artificial Opening Endoscopic, Diagnostic (ICD-10-PCS; principal; 2017-12-02 08:00)
DX: K57.31 Diverticulosis of large intestine without perforation or abscess with bleeding (principal); K62.5 Hemorrhage of anus and rectum; I10 Essential (primary) hypertension; K57.90 Diverticulosis of intestine, part unspecified, without perforation or abscess without bleeding; K29.70 Gastritis, unspecified, without bleeding; D62 Acute posthemorrhagic anemia; Z85.42 Personal history of malignant neoplasm of other parts of uterus; Z87.442 Personal history of urinary calculi
CPT/HCPCS: 36415; 71045-TC-FY; 74177-TC; 80048; 80053; 81003; 81015; 82272; 83735; 84100; 84703; 85025; 85044; 85610; 85730; 86850; 86900; 86901; 86922; 87086; 87186; 88305-TC; 93005; 93010; 99285-25; J7030

== ENCOUNTER 2017-12-29 12:15 | Day surgery (SDC) | payer OTHER ==
[2017-12-29 12:59] VITALS: BMI 31.7
[2017-12-29] MEDS ORDERED: MIDAZOLAM HCL 2 MG/2 ML SINGLE DOSE VIAL ONE (14:49)
[2017-12-29] MEDS ORDERED: DEXAMETHASONE SOD PHOSPHATE 4 MG/1 ML VIAL ONE (15:27)
--- NOTE | 2017-12-29 15:50 | OP ---
Operative Note - Note: Operative Date: 12/29/17 Pre-Operative Diagnosis: Left renal stone Operation: Left ESWL Findings: 6mm Mid pole Left renal stone Post-Operative Diagnosis: Same as Pre-op Surgeon: Easton Russell Anesthesia: Fractional Estimated Blood Loss (mls): 0 Operative Report Dictated: Yes
[2017-12-29] MEDS ORDERED: oxyCODONE HCL 5 MG TABLET PO PRN (15:57)
[2017-12-29] MEDS ORDERED: ACETAMINOPHEN 325 MG TABLET (FP) PO PRN (15:57)
[2017-12-29] MEDS ORDERED: ONDANSETRON 4 MG/2 ML VIAL IVPUSH PRN (15:57)
[2017-12-29] MEDS ORDERED: LACTATED RINGERS SOLUTION 1,000 ML IV SCH (16:00)
[2017-12-29 16:16] VITALS: TEMP 98.6
[2017-12-29 17:23] VITALS: BP 108/67; PULSE 85
--- NOTE | 2017-12-29 22:11 | OP ---
DATE OF OPERATION: 12/29/2017 PREOPERATIVE DIAGNOSIS: Left renal stone. POSTOPERATIVE DIAGNOSIS: Left renal stone. PROCEDURE: Left extracorporeal shock wave lithotripsy. ATTENDING: Easton Swenson MD ANESTHESIA: Fractional. DESCRIPTION OF OPERATION: The patient was brought in the operating room and placed in supine position on the operating room table. Ultrasonography and fluoroscopy were performed. A 6-mm left mid-pole stone was identified. At this point, shock wave lithotripsy started once the anesthesia and preoperative antibiotics were administered; 2500 impulses at 17 joules of power were administered to the stone. Excellent fragmentation was noted under real-time ultrasonography and fluoroscopy. There were no complications noted. The disposition of the patient is to the recovery room. Luci [id number]
== END 2017-12-29 17:20 | disposition home or self-care (01) ==
LOC: JASU-SURG 12:15
PROVIDERS: ATTEND Urology
PROC: 0TF4XZZ Fragmentation in Left Kidney Pelvis, External Approach (ICD-10-PCS; principal; 2017-12-29 14:00)
DX: N20.0 Calculus of kidney (principal)
CPT/HCPCS: 84703

== ENCOUNTER 2018-06-29 08:23 | Day surgery (SDC) | payer OTHER ==
[2018-06-26 11:20] VITALS: BMI 34.2
[2018-06-29] MEDS ORDERED: PROPOFOL 20 ML ONE ×2 (12:51→13:22)
[2018-06-29] MEDS ORDERED: DEXAMETHASONE SOD PHOSPHATE 4 MG/1 ML VIAL ONE (13:32)
[2018-06-29] MEDS ORDERED: IBUPROFEN 800 MG/8 ML IJ IVPB PRN (14:11)
[2018-06-29] MEDS ORDERED: oxyCODONE HCL 5 MG TABLET PO PRN (14:11)
[2018-06-29] MEDS ORDERED: ONDANSETRON 4 MG/2 ML VIAL IVPUSH PRN (14:11)
[2018-06-29] MEDS ORDERED: LACTATED RINGERS SOLUTION 1,000 ML IV SCH (14:15)
[2018-06-29 15:42] VITALS: BP 131/85; PULSE 81; TEMP 97.8
--- NOTE | 2018-06-29 15:49 | OP ---
Operative Note - Note: Operative Date: 06/29/18 Pre-Operative Diagnosis: right staghorn calculus Operation: cystoscopy;right ureteroscopic stone manipulation and stent placement Post-Operative Diagnosis: Other (calcified right ureteral stent) Surgeon: Easton Russell Anesthesia: General
--- NOTE | 2018-08-05 09:04 | OP ---
DATE OF OPERATION: 06/29/2018 PREOPERATIVE DIAGNOSIS: Right staghorn calculus. POSTOPERATIVE DIAGNOSIS: Right staghorn calculus, with calcified right ureteral stent. SURGEON: Karis Hanson MD ANESTHESIA: General. INDICATIONS: The patient has a long-standing history of a staghorn calculus. The patient was brought into the operating room to remove the stent that she has. The stent has been present for less than 6 months. FINDINGS: On cystoscopy, there was noted to be an 8-cm stone involving the distal end of the ureteral stent. The stent was also calcified throughout. It was decided that a 2nd stent would be necessary. DESCRIPTION OF PROCEDURE: Evaluation was performed utilizing the ureteroscope. The distal ureteral stone was encountered and pushed laterally in order to allow for the passage of a wire alongside the stent. At this point the ureteroscope was removed. A 2nd stent was then placed over the wire utilizing the Seldinger technique. No complications were noted. The patient tolerated the procedure very well. KARIS HANSON M.D. /[id number]
== END 2018-06-29 16:35 | disposition home or self-care (01) ==
LOC: JASU-SURG 08:23
PROVIDERS: ATTEND Urology
PROC: 0T768DZ Dilation of Right Ureter with Intraluminal Device, Via Natural or Artificial Opening Endoscopic (ICD-10-PCS; principal; 2018-06-29 11:00)
DX: N20.0 Calculus of kidney (principal)
CPT/HCPCS: 76000-TC-FY; 94760

== ENCOUNTER 2018-07-27 10:06 | Day surgery (SDC) | payer OTHER ==
[2018-07-24 18:30] VITALS: BMI 34.2
[2018-07-27] MEDS ORDERED: MIDAZOLAM HCL 2 MG/2 ML SINGLE DOSE VIAL ONE ×2 (11:43)
--- NOTE | 2018-07-27 13:34 | OP ---
Operative Note - Note: Operative Date: 07/27/18 Pre-Operative Diagnosis: Encrusted Right JJ stent Operation: Right ESWL Findings: Encrusted upper loop of the Right JJ stent Post-Operative Diagnosis: Same as Pre-op Surgeon: Easton Russell Anesthesia: Fractional Estimated Blood Loss (mls): 0 Drains & Tubes with Location: x2 double J stent Operative Report Dictated: Yes
[2018-07-27 14:26] VITALS: BP 126/69; PULSE 86; TEMP 97.6
--- NOTE | 2018-07-27 20:39 | OP ---
DATE OF OPERATION: 07/27/2018 PREOPERATIVE DIAGNOSIS: Calcified right ureteral stent. POSTOPERATIVE DIAGNOSIS: Calcified right ureteral stent. PROCEDURE: Right extracorporeal shock wave lithotripsy. ATTENDING: Karis Hanson MD ANESTHESIA: Fractional. DESCRIPTION OF OPERATION: Patient was brought in the operating room, placed in supine position on the operating room table. Ultrasonography and fluoroscopy were performed. Two ureteral stents with a staghorn calculus were noted. The patient has a history of a stent that became encrusted proximally and distally. The distal aspect has a 6-cm stone involving the distal part of the stent. The same was noted on the proximal aspect. The patient is here for shock wave lithotripsy of the proximal portion of the stent in order to allow for stent removal. All risks and benefits have been given to the patient. The patient was brought in the operating room, placed in supine position on the operating room table. Ultrasonography and fluoroscopy showed the position of the stent. The stent with the calcification had been noted prior to this procedure at the time of the second stent placement. Shock wave lithotripsy was performed; 3000 impulses at 20 joules of power were administered to the proximal aspect. The patient will be scheduled in 1 week for lithotripsy of the bladder portion of the calcification. At that point, the stents will be removed. KARIS HANSON M.D. [id number]
== END 2018-07-27 14:15 | disposition home or self-care (01) ==
LOC: JASU-SURG 10:06 → JOR 10:06 → JASU-SURG 14:15
PROVIDERS: ATTEND Urology
PROC: 0TF6XZZ Fragmentation in Right Ureter, External Approach (ICD-10-PCS; principal; 2018-07-27 11:45)
DX: N20.1 Calculus of ureter (principal); N20.0 Calculus of kidney

== ENCOUNTER 2018-08-03 09:29 | Day surgery (SDC) | payer OTHER ==
[2018-07-31 15:29] VITALS: BMI 34.2
[2018-08-03] MEDS ORDERED: PROPOFOL 20 ML ONE ×2 (12:33→12:34)
[2018-08-03] MEDS ORDERED: MIDAZOLAM HCL 2 MG/2 ML SINGLE DOSE VIAL ONE (12:34)
[2018-08-03] MEDS ORDERED: GENTAMICIN 80MG PREMIX BAG IVPB ONE (13:45)
[2018-08-03] MEDS ORDERED: GENTAMICIN SO4 80 MG/2 ML VIAL ONE (14:00)
[2018-08-03] MEDS ORDERED: ONDANSETRON 4 MG/2 ML VIAL IVPUSH PRN (14:13)
[2018-08-03] MEDS ORDERED: oxyCODONE HCL 5 MG TABLET PO PRN (14:13)
[2018-08-03] MEDS ORDERED: LACTATED RINGERS SOLUTION 1,000 ML IV SCH (14:15)
--- NOTE | 2018-08-03 14:51 | OP ---
Operative Note - Note: Operative Date: 08/03/18 Pre-Operative Diagnosis: right calcified stent with large bladder stone Operation: cystoscopy and laser lithotripsy of bladder stone Findings: bulky calcification of ureteral stent Post-Operative Diagnosis: Same as Pre-op Surgeon: Easton Russell Anesthesia: General Specimens Removed: stone fragements and distal stent fragments Drains & Tubes with Location: cannon placed
[2018-08-03 20:01] VITALS: BP 128/70; PULSE 88; TEMP 98.1
--- NOTE | 2018-08-03 23:02 | OP ---
DATE OF OPERATION: 08/03/2018 PREOPERATIVE DIAGNOSIS: Calcified right ureteral stent with large bladder stone involving the distal ureteral stent. POSTOPERATIVE DIAGNOSIS: Calcified right ureteral stent with large bladder stone involving the distal ureteral stent. PROCEDURE: Cystoscopy and laser lithotripsy of bladder stone. ATTENDING: Karis Hanson MD ANESTHESIA: General. OPERATION: Patient was brought to the operating room and placed in the supine position on the operating room table. Anesthesia and preoperative antibiotics were administered. The patient was then placed in the dorsal lithotomy position and prepped and draped in the usual sterile manner. An 8+ cm stone involving the distal ureter was seen. The patient previously had a second right ureteral stent placed. Utilizing the Holmium laser, the stone was lithotripsied. A total of 12.9 KJ of energy were utilized to fragment the stone. There were significant stone fragments and because of the bulkiness of the stent, there was hematuria noted. No perforation of the bladder was noted. Fragments of the stents were also removed with the stone. Because of poor visualization, the procedure was terminated. A Pedersen catheter was left in place to straight drainage. Because of the complexity of the case, the patient required tertiary center to remove the stone and perform a possible nephrectomy due to the fact that there is a staghorn calculus with minimal function of the right kidney. The case will be discussed with the patient prior to consultation with the tertiary center. KARIS HANSON M.D. /[id number]
--- NOTE | 2018-08-07 14:32 | PATH ---
Surgical Pathology Report Patient Name: SAKSHI RICHEY Med. Rec. #: [id number] /Age/Gender: 1970 (Age: 48) / F Account: [id number] Location: [facility] Taken: 08/03/2018 Received: 08/05/2018 Reported: 08/07/2018 Physicians: Easton Russell Specimen(s) Received A: BLADDER CALCULI B: PORTION OF RIGHT STENT Clinical History Bladder stone Final Diagnosis A. BLADDER STONES, REMOVAL: CONSISTENT WITH BLADDER CALCULI. SENT FOR CHEMICAL ANALYSIS. B. PORTION OF RIGHT STENT, REMOVAL: CONSISTENT WITH SEGMENT OF STENT. GROSS EXAMINATION ONLY. Electronically Signed Kwame Razo M.D. Gross Description A. Received fresh labeled "bladder stone," is a 4.0 x 2.6 x 0.5 cm aggregate of canales, irregular to fragmented calculi. The specimen is sent for chemical analysis. B. Received fresh labeled "portion of right stent," are 2 green, coiled portions of tubing, averaging 3 cm in length. No soft tissue is present. No sections are submitted, gross only. DL/08/05/2018 saudi/08/05/2018
[2018-08-12 11:18] LABS: CA HYDROGEN PHOS. 55 % (.); CALCIUM PHOSPHATE 25 % (.); WEIGHT 2229.6 mg (.)
== END 2018-08-03 19:00 | disposition home or self-care (01) ==
LOC: JASU-SURG 09:29
PROVIDERS: ATTEND Urology
PROC: 0TCB8ZZ Extirpation of Matter from Bladder, Via Natural or Artificial Opening Endoscopic (ICD-10-PCS; principal; 2018-08-03 12:00)
DX: N21.0 Calculus in bladder (principal)
CPT/HCPCS: 36415; 76000-TC-FY; 82360; 88300-TC; 94760

== ENCOUNTER 2021-08-15 14:22 | Inpatient (IN) | payer OTHER ==
[2021-08-15] MEDS ORDERED: MAG HYDROX/AL HYDROX/SIMETH 30 ML UNIT-DOSE CUP PO ONE (15:29)
[2021-08-15] MEDS ORDERED: SUCRALFATE 1 GM TABLET (FP) PO ONE (15:29)
[2021-08-15] MEDS ORDERED: ACETAMINOPHEN 1000 MG/100 ML BAG IVPB ONE (15:29)
[2021-08-15] MEDS ORDERED: FAMOTIDINE 20 MG/50 ML IVPB 20 MG/50 ML MG IVPB ONE (15:29)
[2021-08-15] MEDS ORDERED: SUCRALFATE 1 GM TABLET (FP) ONE (15:46)
[2021-08-15] MEDS ORDERED: ACETAMINOPHEN INJECTION 100 ML IVPB ONE (15:46)
[2021-08-15] MEDS ORDERED: MAG HYDROX/AL HYDROX/SIMETH 30 ML UNIT-DOSE CUP ONE (15:46)
[2021-08-15] MEDS ORDERED: FAMOTIDINE 10 MG/ML VIAL IVPB ONE (15:47)
[2021-08-15 17:35] LABS: BASO % 0.2 % (0-2.0); EOS % 0.6 % (0-4.5); HEMATOCRIT 38.5 % (32.4-45.2); HEMOGLOBIN 12.7 GM/dL (10.7-15.3); LYMPH % 23.3 % (8-40); MCH 29.3 pg (25.7-33.7); MCHC 33.1 g/dl (32.0-36.0); MEAN CELL VOLUME 88.5 fl (80-96); MEAN PLT VOLUME 8.2 fl (7.5-11.1); MONO % 6.3 % (3.8-10.2); NEUT % 69.6 % (42.8-82.8); PLATELET COUNT 354 10^3/uL (134-434); RBC 4.35 M/mm3 (3.60-5.2); RDW 14.3 % (11.6-15.6); WHITE BLOOD COUNT 8.7 K/mm3 (4.0-10.0)
[2021-08-15 17:41] LABS: ALBUMIN 3.8 g/dl (3.4-5.0); CALCIUM 9.1 mg/dL (8.5-10.1)
[2021-08-15 17:42] LABS: INR 1.07 (0.83-1.09); PROTHROMBIN TIME (PATIENT) 12.3 SEC (9.7-13.0)
[2021-08-15 17:44] LABS: CREATININE 0.7 mg/dL (0.55-1.3)
[2021-08-15 17:45] LABS: BILIRUBIN,TOTAL 0.3 mg/dL (0.2-1)
[2021-08-15 17:45] LABS: ACTIVATED PTT 29.8 SECONDS (25.2-36.5)
[2021-08-15] MEDS ORDERED: SODIUM CHLORIDE 1,000 ML IV STA (20:52)
[2021-08-15] MEDS: INSULIN SLIDING SCALE (NOVOLOG) 1 VIAL SQ SCH (23:35)
[2021-08-16 04:42] VITALS: BMI 34.2
[2021-08-16] MEDS: SODIUM CHLORIDE 1,000 ML IV SCH ×2 (05:00→16:32)
[2021-08-16] MEDS: INSULIN SLIDING SCALE (NOVOLOG) 1 VIAL SQ SCH ×4 (06:09→21:41)
[2021-08-16 07:55] LABS: HEMATOCRIT 28.7 % (32.4-45.2); HEMOGLOBIN 9.8 GM/dL (10.7-15.3); MCH 30.1 pg (25.7-33.7); MEAN CELL VOLUME 88.4 fl (80-96); MEAN PLT VOLUME 8.1 fl (7.5-11.1); PLATELET COUNT 269 10^3/uL (134-434); RBC 3.24 M/mm3 (3.60-5.2); RDW 14.1 % (11.6-15.6); WHITE BLOOD COUNT 9.8 K/mm3 (4.0-10.0)
[2021-08-16 08:35] LABS: ALBUMIN 3.2 g/dl (3.4-5.0); BLOOD UREA NITROGEN 13.5 mg/dL (7-18); CALCIUM 8.3 mg/dL (8.5-10.1); MAGNESIUM 2.3 mg/dL (1.8-2.4)
[2021-08-16 08:38] LABS: CREATININE 0.6 mg/dL (0.55-1.3)
[2021-08-16 08:40] LABS: BILIRUBIN,TOTAL 0.7 mg/dL (0.2-1); TOT PROT 5.8 g/dl (6.4-8.2)
[2021-08-16] MEDS: KCL 10 MEQ IVPB 10 MEQ/100 ML INFUS.BAG IVPB SCH ×3 (08:50→12:04)
[2021-08-16] MEDS ORDERED: FAMOTIDINE 20 MG TABLET PO SCH (10:00)
[2021-08-16] MEDS ORDERED: PANTOPRAZOLE SODIUM 40 MG VIAL IVPUSH SCH (10:00)
[2021-08-16] MEDS ORDERED: CHLORTHALIDONE 25 MG TABLET PO SCH (10:00)
[2021-08-16] MEDS ORDERED: ACETAMINOPHEN 1000 MG/100 ML BAG IVPB PRN ×2 (14:00→22:30)
[2021-08-16 15:45] LABS: BASO % 0.2 % (0-2.0); EOS % 0.7 % (0-4.5); HEMATOCRIT 25.1 % (32.4-45.2); HEMOGLOBIN 8.3 GM/dL (10.7-15.3); LYMPH % 36.3 % (8-40); MCH 29.5 pg (25.7-33.7); MCHC 33.2 g/dl (32.0-36.0); MEAN PLT VOLUME 8.2 fl (7.5-11.1); MONO % 9.9 % (3.8-10.2); NEUT % 52.9 % (42.8-82.8); PLATELET COUNT 238 10^3/uL (134-434); RBC 2.81 M/mm3 (3.60-5.2); RDW 14.1 % (11.6-15.6); WHITE BLOOD COUNT 10.3 K/mm3 (4.0-10.0)
[2021-08-16] MEDS ORDERED: BISACODYL 5 MG TABLET.DR (FP) PO ONE (16:00)
[2021-08-16] MEDS ORDERED: PEG 3350/NA SULF BICARB CL/KCL 4000 ML SOLN.RECON PO ONE (17:00)
[2021-08-16] MEDS ORDERED: POTASSIUM CHLORIDE ORAL LIQUID 20 MEQ/15 ML PO ONE (18:01)
[2021-08-16 21:09] LABS: BASO % 0.3 % (0-2.0); EOS % 1.4 % (0-4.5); HEMATOCRIT 24.7 % (32.4-45.2); HEMOGLOBIN 8.2 GM/dL (10.7-15.3); LYMPH % 37.9 % (8-40); MCH 29.6 pg (25.7-33.7); MCHC 33.3 g/dl (32.0-36.0); MEAN CELL VOLUME 88.9 fl (80-96); MONO % 8.3 % (3.8-10.2); NEUT % 52.1 % (42.8-82.8); PLATELET COUNT 237 10^3/uL (134-434); RBC 2.78 M/mm3 (3.60-5.2); RDW 14.4 % (11.6-15.6); WHITE BLOOD COUNT 8.5 K/mm3 (4.0-10.0)
[2021-08-16] MEDS ORDERED: CHLORHEXIDINE GLUCONATE 4% CLEANSER FOR DECOLONIZATION TP SCH (22:00)
[2021-08-16] MEDS ORDERED: LATANOPROST 0.005% OPHTH SOLN 2.5ML BOTTLE OU SCH (22:00)
[2021-08-16] MEDS ORDERED: SODIUM CHLORIDE 1,000 ML IV SCH (22:30)
[2021-08-16] MEDS: MUPIROCIN 2% TOPICAL OINTMENT FOR DECOLONIZATION NS SCH (23:26)
[2021-08-17] MEDS: INSULIN SLIDING SCALE (NOVOLOG) 1 VIAL SQ SCH ×4 (06:22→21:41)
[2021-08-17 08:08] LABS: CALCIUM 8.4 mg/dL (8.5-10.1)
[2021-08-17 08:09] LABS: ALBUMIN 3.3 g/dl (3.4-5.0); BASO % 0.3 % (0-2.0); BLOOD UREA NITROGEN 5.7 mg/dL (7-18); CALCIUM 8.3 mg/dL (8.5-10.1); EOS % 1.8 % (0-4.5); HEMOGLOBIN 12.4 GM/dL (10.7-15.3); LYMPH % 29.7 % (8-40); MAGNESIUM 2.3 mg/dL (1.8-2.4); MCH 30.1 pg (25.7-33.7); MCHC 34.3 g/dl (32.0-36.0); MEAN CELL VOLUME 87.7 fl (80-96); MEAN PLT VOLUME 7.7 fl (7.5-11.1); MONO % 8.1 % (3.8-10.2); NEUT % 60.1 % (42.8-82.8); PLATELET COUNT 212 10^3/uL (134-434); RBC 4.11 M/mm3 (3.60-5.2); RDW 14.2 % (11.6-15.6); WHITE BLOOD COUNT 8.5 K/mm3 (4.0-10.0)
[2021-08-17 08:10] LABS: BLOOD UREA NITROGEN 5.7 mg/dL (7-18)
[2021-08-17 08:12] LABS: CREATININE 0.5 mg/dL (0.55-1.3); PHOSPHOROUS 1.7 mg/dL (2.5-4.9)
[2021-08-17 08:13] LABS: CREATININE 0.5 mg/dL (0.55-1.3)
[2021-08-17 08:28] LABS: PROTHROMBIN TIME (PATIENT) 11.5 SEC (9.7-13.0)
[2021-08-17] MEDS: MUPIROCIN 2% TOPICAL OINTMENT FOR DECOLONIZATION NS SCH (10:00)
[2021-08-17] MEDS ORDERED: FAMOTIDINE 20 MG TABLET PO SCH (10:00)
[2021-08-17] MEDS ORDERED: CHLORTHALIDONE 25 MG TABLET PO SCH (10:00)
[2021-08-17] MEDS: KCL 10 MEQ IVPB 10 MEQ/100 ML INFUS.BAG IVPB SCH ×3 (13:15→16:26)
[2021-08-17] MEDS: SODIUM CHLORIDE 1,000 ML IV SCH (16:26)
[2021-08-17] MEDS: LATANOPROST 0.005% OPHTH SOLN 2.5ML BOTTLE OU SCH (21:41)
[2021-08-17] MEDS ORDERED: MUPIROCIN 2% TOPICAL OINTMENT FOR DECOLONIZATION NS SCH (22:00)
[2021-08-17] MEDS ORDERED: CHLORHEXIDINE GLUCONATE 4% CLEANSER FOR DECOLONIZATION TP SCH (22:00)
[2021-08-17] MEDS ORDERED: LATANOPROST 0.005% OPHTH SOLN 2.5ML BOTTLE OU SCH (22:00)
[2021-08-18] MEDS: SODIUM CHLORIDE 1,000 ML IV SCH ×3 (01:23→20:18)
[2021-08-18] MEDS: INSULIN SLIDING SCALE (NOVOLOG) 1 VIAL SQ SCH ×4 (06:24→21:25)
[2021-08-18 08:56] LABS: BASO % 0.4 % (0-2.0); EOS % 2.6 % (0-4.5); HEMATOCRIT 34.8 % (32.4-45.2); HEMOGLOBIN 11.8 GM/dL (10.7-15.3); LYMPH % 32.9 % (8-40); MCHC 33.8 g/dl (32.0-36.0); MEAN CELL VOLUME 88.7 fl (80-96); MEAN PLT VOLUME 8.2 fl (7.5-11.1); MONO % 8.5 % (3.8-10.2); NEUT % 55.6 % (42.8-82.8); PLATELET COUNT 239 10^3/uL (134-434); RBC 3.92 M/mm3 (3.60-5.2); RDW 14.4 % (11.6-15.6); WHITE BLOOD COUNT 8.3 K/mm3 (4.0-10.0)
[2021-08-18 09:24] LABS: CALCIUM 8.3 mg/dL (8.5-10.1)
[2021-08-18 09:25] LABS: BLOOD UREA NITROGEN 4.9 mg/dL (7-18)
[2021-08-18 09:28] LABS: CREATININE 0.5 mg/dL (0.55-1.3)
[2021-08-18] MEDS: FAMOTIDINE 20 MG TABLET PO SCH (10:08)
[2021-08-18] MEDS: LATANOPROST 0.005% OPHTH SOLN 2.5ML BOTTLE OU SCH (21:17)
[2021-08-19] MEDS: SODIUM CHLORIDE 1,000 ML IV SCH ×2 (05:48→15:56)
[2021-08-19] MEDS: INSULIN SLIDING SCALE (NOVOLOG) 1 VIAL SQ SCH ×4 (07:09→21:15)
[2021-08-19] MEDS: FAMOTIDINE 20 MG TABLET PO SCH (09:52)
[2021-08-19] MEDS ORDERED: PEG 3350/NA SULF BICARB CL/KCL 4000 ML SOLN.RECON PO ONE ×2 (10:00)
[2021-08-19 10:37] LABS: HEMATOCRIT 35.2 % (32.4-45.2); HEMOGLOBIN 12.2 GM/dL (10.7-15.3); MCH 30.8 pg (25.7-33.7); MCHC 34.7 g/dl (32.0-36.0); MEAN CELL VOLUME 88.8 fl (80-96); MEAN PLT VOLUME 7.9 fl (7.5-11.1); PLATELET COUNT 261 10^3/uL (134-434); RBC 3.96 M/mm3 (3.60-5.2); RDW 14.3 % (11.6-15.6); WHITE BLOOD COUNT 7.4 K/mm3 (4.0-10.0)
[2021-08-19 10:40] LABS: BLOOD UREA NITROGEN 4.7 mg/dL (7-18); CALCIUM 8.4 mg/dL (8.5-10.1)
[2021-08-19 10:43] LABS: CREATININE 0.6 mg/dL (0.55-1.3)
[2021-08-19] MEDS ORDERED: POTASSIUM CHLORIDE ORAL LIQUID 20 MEQ/15 ML PO ONE (10:57)
[2021-08-19] MEDS ORDERED: BISACODYL 5 MG TABLET.DR (FP) PO ONE ×2 (20:00)
[2021-08-19] MEDS: LATANOPROST 0.005% OPHTH SOLN 2.5ML BOTTLE OU SCH (21:13)
[2021-08-20] MEDS: SODIUM CHLORIDE 1,000 ML IV SCH (02:04)
[2021-08-20] MEDS: INSULIN SLIDING SCALE (NOVOLOG) 1 VIAL SQ SCH (06:28)
[2021-08-20] MEDS: FAMOTIDINE 20 MG TABLET PO SCH (10:30)
[2021-08-20 10:47] LABS: INR 1.04 (0.83-1.09)
[2021-08-20 11:10] LABS: CALCIUM 8.6 mg/dL (8.5-10.1)
[2021-08-20 11:15] LABS: CREATININE 0.5 mg/dL (0.55-1.3)
[2021-08-20 11:37] LABS: BASO % 0.6 % (0-2.0); EOS % 2.8 % (0-4.5); HEMOGLOBIN 11.9 GM/dL (10.7-15.3); LYMPH % 28.7 % (8-40); MCH 30.1 pg (25.7-33.7); MCHC 33.9 g/dl (32.0-36.0); MEAN CELL VOLUME 88.8 fl (80-96); MEAN PLT VOLUME 7.9 fl (7.5-11.1); MONO % 7.7 % (3.8-10.2); NEUT % 60.2 % (42.8-82.8); PLATELET COUNT 263 10^3/uL (134-434); RBC 3.94 M/mm3 (3.60-5.2)
[2021-08-20 14:25] VITALS: BP 140/93; PULSE 85; TEMP 99.5
== END 2021-08-20 16:41 | disposition home or self-care (01) | DRG 244 ==
LOC: JER 14:22 → JERBED 18:23 → J6S 08-16 04:34 → JICU 08-16 22:27 → J6S 08-17 16:05
PROVIDERS: ADMIT Internal Medicine; ATTEND Internal Medicine
PROC: 0DJD8ZZ Inspection of Lower Intestinal Tract, Via Natural or Artificial Opening Endoscopic (ICD-10-PCS; principal; 2021-08-20 11:00)
DX: K57.90 Diverticulosis of intestine, part unspecified, without perforation or abscess without bleeding (principal); K92.2 Gastrointestinal hemorrhage, unspecified; I10 Essential (primary) hypertension; E11.9 Type 2 diabetes mellitus without complications; K76.0 Fatty (change of) liver, not elsewhere classified; R00.0 Tachycardia, unspecified; E66.9 Obesity, unspecified; Z68.32 Body mass index [BMI] 32.0-32.9, adult
CPT/HCPCS: 36415; 36430; 36511; 71045-TC-FY; 74174-TC; 80048; 80053; 82728; 82962; 83540; 83550; 83690; 83735; 84100; 84132; 84484; 84703; 85025; 85027; 85610; 85730; 86850; 86900; 86901; 86922; 93005; 93010; 99285-25; C9803-CS; P9016; P9058; U0003; U0005

== ENCOUNTER 2022-08-01 04:11 | Day surgery (SDC) | payer OTHER ==
[2022-07-31 11:23] VITALS: BMI 46.7
[2022-08-01 11:56] VITALS: TEMP 98
[2022-08-01 14:36] VITALS: BP 123/61; PULSE 77; RESP 15
== END 2022-08-01 11:15 | disposition home or self-care (01) ==
LOC: JASU-ENDO 04:11
PROVIDERS: ATTEND Internal Medicine Gastroenterology
PROC: 0DB78ZX Excision of Stomach, Pylorus, Via Natural or Artificial Opening Endoscopic, Diagnostic (ICD-10-PCS; 2022-08-01)
PROC: 0DB68ZX Excision of Stomach, Via Natural or Artificial Opening Endoscopic, Diagnostic (ICD-10-PCS; principal; 2022-08-01 10:15)
DX: K29.50 Unspecified chronic gastritis without bleeding (principal); K31.7 Polyp of stomach and duodenum; I10 Essential (primary) hypertension
CPT/HCPCS: 82962; 88305-TC; 88342-TC

== ENCOUNTER 2023-05-22 09:17 | Emergency (ER) | payer OTHER ==
[2023-05-22 09:22] VITALS: BP 167/71; PULSE 79; RESP 18; TEMP 97.3; BMI 42.0
[2023-05-22] MEDS ORDERED: ONDANSETRON 4 MG/2 ML VIAL ONE (10:36)
[2023-05-22] MEDS ORDERED: MECLIZINE HCL 25 MG TABLET (FP) ONE (10:36)
[2023-05-22] MEDS: ONDANSETRON 4 MG/2 ML VIAL IVPUSH ONE (11:01)
[2023-05-22] MEDS: MECLIZINE HCL 25 MG TABLET (FP) PO ONE (11:01)
[2023-05-22] MEDS: SODIUM CHLORIDE 1,000 ML IV STA (11:16)
[2023-05-22 11:42] LABS: BASO % 0.3 % (0-2.0); EOS % 0.7 % (0-4.5); EPI CELLS >36 /uL (0-25.1); HEMATOCRIT 41.9 % (32.4-45.2); HEMOGLOBIN 13.9 GM/dL (10.7-15.3); HYALINE CASTS 0 /uL (0-3.1); LYMPH % 22.4 % (8-40); MCH 29.8 pg (25.7-33.7); MCHC 33.1 g/dl (32.0-36.0); MEAN PLT VOLUME 8.3 fl (7.5-11.1); MONO % 6.7 % (3.8-10.2); NEUT % 69.9 % (42.8-82.8); PLATELET COUNT 316 10^3/uL (134-434); RBC 4.66 M/mm3 (3.60-5.2); RDW 14.5 % (11.6-15.6); URINE APPEARANCE CLEAR; URINE BACTERIA 47 /uL (0-1359); URINE BILIRUBIN NEGATIVE (NEGATIVE); URINE COLOR YELLOW; URINE GLUCOSE (UA) NEGATIVE (NEGATIVE); URINE KETONE NEGATIVE (NEGATIVE); URINE LEUK ESTERASE NEGATIVE (NEGATIVE); URINE NITRITE NEGATIVE (NEGATIVE); URINE PROTEIN 1+ (NEGATIVE); URINE RBC 17 /uL (0-23.9); URINE UROBILINOGEN 0.2 mg/dL (0.2-1.0); URINE WBC 3 /uL (0-25.8); WHITE BLOOD COUNT 9.2 K/mm3 (4.0-10.0)
[2023-05-22 12:08] LABS: POTASSIUM 3.3 mmol/L (3.5-5.1)
[2023-05-22 12:11] LABS: ALBUMIN 4.2 g/dl (3.4-5.0); BLOOD UREA NITROGEN 13.4 mg/dL (7-18); MAGNESIUM 1.8 mg/dL (1.8-2.4)
[2023-05-22 12:14] LABS: CREATININE 0.7 mg/dL (0.55-1.3)
[2023-05-22 12:15] LABS: BILIRUBIN,TOTAL 0.4 mg/dL (0.2-1); TOT PROT 7.7 g/dl (6.4-8.2)
[2023-05-22] MEDS ORDERED: POTASSIUM CHLORIDE ORAL LIQUID 20 MEQ/15 ML ONE (13:08)
[2023-05-22] MEDS: POTASSIUM CHLORIDE ORAL LIQUID 20 MEQ/15 ML PO ONE (13:08)
== END 2023-05-22 13:10 | disposition home or self-care (01) ==
LOC: JER 09:17
PROC: 3E033GC Introduction of Other Therapeutic Substance into Peripheral Vein, Percutaneous Approach (ICD-10-PCS; principal; 2023-05-22)
PROC: 3E0337Z Introduction of Electrolytic and Water Balance Substance into Peripheral Vein, Percutaneous Approach (ICD-10-PCS; 2023-05-22)
DX: R42 Dizziness and giddiness (principal); R11.2 Nausea with vomiting, unspecified; Z20.822 Contact with and (suspected) exposure to COVID-19
CPT/HCPCS: 0241U-QW; 36415; 70450-TC; 80053; 81003; 82962; 83735; 84484; 85025; 87086; 93005; 93010; 99285-25